=== PATIENT | male | born 1930 | race Caucasian/White ===

== ENCOUNTER 2017-10-23 03:47 | Observation (INO) | payer MEDICARE, BC ==
[2017-10-23] MEDS ORDERED: LORazepam INJ* 2 MG/ML 1 ML VIAL IV PUSH ONE (04:29)
[2017-10-23 05:04] LABS: Urine Appearance Cloudy; Urine Blood 2+ (Negative); Urine Color Yellow; Urine Ketones Negative (Negative); Urine Protein Negative (Negative); Urine Red Blood Cell Trace(0-2/hpf) (Absent); Urine Specific Gravity 1.008 (1.010-1.030); Urine Urobilinogen Negative (Negative); Urine White Blood Cell 3+(>20/hpf) (Absent)
[2017-10-23 05:15] LABS: ABS Basophils 0 10^3/ul (0-0.2); ABS Eosinophils 0.1 10^3/ul (0-0.6); ABS Lymphocytes 0.7 10^3/ul (1.0-4.8); ABS Monocytes 0.7 10^3/ul (0-0.8); ABS Nucleated RBC 0 10^3/ul; Eosinophil % 1.2 % (0-6); Hematocrit 37 % (42-52); Hemoglobin 12.7 g/dl (14.0-18.0); Lymphocyte % 9.8 % (25-47); Mean Corpuscular HGB Conc 34 g/dl (31-36); Mean Corpuscular Hemoglobin 31 pg (27-31); Mean Corpuscular Volume 90 fL (80-94); Mean Platelet Volume 7.7 um3 (7.4-10.4); Nucleated Red Blood Cells % 0; Platelet Count 113 10^3/ul (150-450); Red Blood Count 4.14 10^6/ul (4.0-5.4); Red Cell Distribution Width 15 % (10.5-15); White Blood Count 7.5 10^3/ul (3.5-10.8)
--- OUTSIDE RECORDS SUMMARY | 2017-10-23 05:19 | XMS REPORT ---
:1930 External Reference #:[id number] Author Organization [facility] Address [address] [place] [address] Phone [phone] Care Team Providers Name Role Phone Aditya Urias MD Care Team Information Engineering Technical Specialist Unavailable Aditya Urias MD Primary Care Physician Unavailable Payers Type Date Identification Numbers Payment Provider Subscriber Medicare Primary Effective: Policy Number: Medicare Robert Mayfield 1995 [id number] PayID: [id number] [address] [place] [address] Medigap Part B Effective: 2017 Policy Number: [id number] [place] Plan Aditya Mayfield PayID: [id number] [address] [place] [address] Problems Description No Information Family History Date Family Member(s) Problem(s) Comments Father due to Hypertension () : (age 99 Years) Mother due to Hypertension : (age 74 Years) First Brother due to Parkinson's Disease First Sister 70 First Sister No Current Problems Social History Type Date Description Comments Smoking Nonsmoker Allergies, Adverse Reactions, Alerts Date Description Reaction Status Severity Comments 10/11/2017 NKDA active Medications Medication Date Status Form Strength Qnty SIG Indications Ordering Provider Aspir-[address] 81mg 1 by Unknown 000 mouth every day Fish Oil 0 Active Capsules Unknown 000 Metoprolol 0 Active Tablets ER 25mg 1 by Unknown Succinate ER 000 24HR mouth every day Glipizide ER 0 Active Tablets ER 2.5mg 1 tab Unknown 000 24HR by mouth a day Levothyroxine 0 Active Tablets 25mcg 1 by Unknown Sodium 000 mouth every day Lisinopril-[place] Active Tablets 20-12.5mg 1 by Unknown chlorothiazide 000 mouth every day Vital Signs Date Vital Result Comment 10/11/2017 BP Systolic 162 mmHg BP Diastolic 80 mmHg Heart Rate 88 /min Body Temperature 98.1 F Weight 140.00 lb Results Description No Information Procedures Description No Information Plan of Care Future Appointment(s):01/10/2018 8:00 am - Aditya Urias MD at [facility] [id number]/16/2017 10:00 am - Aditya Urias MD at [facility] [id number]/11/2017 - Aditya Urias [id number] Essential (primary) hypertensionComments:let's change the Metoprolol dose to 50mg daily. you can just take 2 of the 25's you have already. Next Saturday, set up a nurse visit here for a BP check.Follow up:3 moR53.1 WeaknessAllComments:~B_~U_Medication Management~b_~u_ Patient Understands medications he's taking? Yes No Are there Barriers to Adherence? Yes No Has the patient been asked about herbal supplements and therapies, and OTC meds? Yes No
[2017-10-23 05:23] LABS: INR 0.93 (0.77-1.02)
[2017-10-23 05:32] LABS: EGFR Non-African American 64.4 (>60)
[2017-10-23] MEDS ORDERED: Iodixanol* (CONTRAST) 320 MG/ML 100 ML SDV IV ONE (05:35)
--- NOTE | 2017-10-23 08:14 | RAD ---
INDICATION: Back pain. COMPARISON: There are no prior studies available for comparison. TECHNIQUE: Contiguous axial sections were obtained beginning above the C6 vertebra and scanning through the T12 vertebra. Images were reconstructed in the sagittal and coronal planes. FINDINGS: There is a mild dorsal scoliosis convex toward the left in the upper dorsal region and toward the right in the mid dorsal region. The vertebra are otherwise in normal alignment. No fracture is seen. There is mild diffuse degenerative disc disease. There is no evidence for spinal canal narrowing. The visualized portion of the thoracic aorta is normal in caliber. There is moderate to severe calcific plaque present. IMPRESSION: NO EVIDENCE FOR FRACTURE.
--- NOTE | 2017-10-23 08:37 | RAD ---
INDICATION: Lower back pain. History of bilateral inguinal hernia repair. History of prostate carcinoma. COMPARISON: September 24, [address] scan [address] CT. TECHNIQUE: Multidetector CT images were obtained from the lung bases to the ischial tuberosities with 80 mL Visipaque 320 IV and oral contrast. Multiplanar reformation including bone algorithm images of the lumbar sacral spine.. REPORT: Images of the inferior thorax remarkable for cardiomegaly and associated compressive atelectasis at the LEFT lung base. Median sternotomy wires. Unremarkable liver and gallbladder. No suspicious lesion of the pancreas evident. 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 Top normal size spleen. Negative for CT abnormality of the upper GI. Solitary short segment RIGHT para midline mid small bowel loop dilated up to 3.2 cm with feculent appearing contents without mural thickening or perienteric inflammatory change of uncertain significance. No additional abnormality of the small bowel. Normal appendix. Moderate diverticulosis primarily involving the sigmoid colon without acute inflammatory change. Negative for ascites, free air, or significant hernias. Normal adrenal glands. Symmetric nephrograms and pyelograms. Mild RIGHT hydroureteronephrosis new compared with the prior exam. The RIGHT ureter is dilated down to the level of the ureterovesicular junction. Few renal cysts including a 4.2 cm cyst at the lower pole of the LEFT kidney The LEFT ureter is unremarkable. Catheterized decompressed urinary bladder. Symmetric seminal vesicles. Negative for prostatomegaly. Negative for lymphadenopathy. Atherosclerotic plaque of normal diameter abdominal aorta and iliac arteries. Partially decompressed IVC consistent with lower volume state. Negative for fracture or suspicious focal osseous lesions based on comparison with the prior CT and bone scan exams. Small bone island at the RIGHT ischium. Advanced degenerative spondylosis most marked at L1-L2, L2-L3, and L4-L5. Schmorl node endplate herniation at the superior endplate of L2. Reactive endplate sclerosis flanking the L1-L2 disc space corresponding with increased activity on prior bone scan without concern. No significant central canal stenosis evident at any level. At L4-L5 degenerative spondylosis and facet joint osteoarthritis results in moderate bilateral foraminal stenosis without change. IMPRESSION: 1. Solitary short segment RIGHT para midline mid small bowel loop dilated up to 3.2 cm with feculent appearing contents without mural thickening or perienteric inflammatory change of uncertain significance. Negative for ascites or free air. 2. New mild RIGHT hydroureteronephrosis. No obstructing stone evident. Catheterized urinary bladder is decompressed. 3. Negative for lumbar sacral spine fracture or presence of a suspicious focal osseous lesion.
[2017-10-23] MEDS ORDERED: oxyCODONE/Acetamin 5/325 MG* TAB PO ONE (09:17)
[2017-10-23] MEDS: Sulfamethox/Trimethoprim DS 800/160* TAB PO SCH ×2 (09:52→21:01)
[2017-10-23] MEDS ORDERED: Acetaminophen TAB* 325 MG PO PRN (11:11)
[2017-10-23] MEDS ORDERED: Dextrose 50% Syringe 50 ML* 25 GM/50 ML SYRINGE IV PUSH PRN (11:48)
[2017-10-23] MEDS: Metoprolol Succinate XL TAB* 25 MG PO SCH (13:41)
[2017-10-23] MEDS: Heparin VIAL(*) 5000 UNITS/ML VIAL (FIVE THOUSAND) SUBCUT SCH ×2 (13:42→21:02)
[2017-10-23] MEDS: Insulin LISPRO* 1 UNITS UNIT SUBCUT SCH (17:58)
--- NOTE | 2017-10-23 18:33 | ED ---
Elva Bernardo Julia, scribed for Shani Taylor MD on 10/23/17 at 0735 . Progress - Progress Note Progress Note: Pt is signed out from Dr. Franco at shift change awaiting urology consult. Course/Dx - Course Course Of Treatment: Pt is signed out from Dr. Franco awating urology consult. Dr. Espinal recommends patient is discharged with a prescription for Backtrim and he will see in the office. During discharge pt was unable to ambulate and had pain. Daughter expressed concerns that she is not able to care for the pt at home. Decision was made to admit for difficulty ambulating and senior living care plan after discharge. - Diagnoses Provider Diagnoses: Back pain, Urinary tract infection - Provider Notifications Discussed Care Of Patient With: Harry Espinal - urology Time Discussed With Above Provider: 08:35 Instructed by Provider To: Other - Recommneds pt be discharged with Backtrim and he will see the patient in his office. Discharge - Sign-Out/Discharge Documenting (check all that apply): Discharge/Admit/Transfer - admit, Receiving Sign-Out Receiving patient FROM: Casey Franco - Discharge Plan Condition: Stable Disposition: ADMITTED TO [facility] - Billing Disposition and Condition Condition: STABLE [place] [place] Consult: At 09:30, Dr. Dougherty, hospitalist, agrees to admit patient. The documentation as recorded by the Elva ricardo Julia accurately reflects the service I personally performed and the decisions made by , Shani Taylor MD.
--- NOTE | 2017-10-23 21:04 | HP ---
CC: Aditya Urias MD* HISTORY AND PHYSICAL: DATE OF ADMISSION: 10/23/17 PRIMARY CARE PROVIDER: Aditya Urias MD. ATTENDING PHYSICIAN: Bernabe Dougherty MD * (dictated by Nila Mai NP). CHIEF COMPLAINT: Back pain. HISTORY OF PRESENT ILLNESS: Mr. Mayfield is an 87-year-old male with past medical history significant for coronary artery disease, hypertension, diabetes mellitus , dementia, prostate cancer, hypothyroidism and hyperlipidemia, who for 2 days has been complaining of lower back pain with no history of trauma. Per the patient's daughter, he tried a heating pack at home that did not help. Last evening he took ibuprofen and his pain was improved, but during the night his pain increased and so they called EMS. It was also reported that the patient has been having difficulty getting on his feet and uses a cane at baseline for ambulation. The patient denies any recent fevers, chills, chest pain, shortness of breath, nausea, vomiting, diarrhea. He has baseline bilateral lower extremity edema. While in the emergency room, the patient received lorazepam, Percocet and Bactrim. He had an abdomen and pelvis CT showing a mild right hydronephrosis. He had thoracic and lumbar CT's showing no acute fractures. Urology was consulted due to the patient's hydronephrosis. They recommended discharging the patient home with Bactrim and follow up with them in the office. The patient was not complaining of pain while on the stretcher, but when he went to get up to get into a wheelchair for discharge, he was unable to stand and walk. At that point, his daughter requested admission for placement. She was unable to care for him at home, so the hospitalists were asked to evaluate the patient for admission. PAST MEDICAL HISTORY: 1. Coronary artery disease. 2. Hypertension. 3. Diabetes mellitus. 4. Dementia. 5. Prostate cancer. 6. Hypothyroidism. 7. Hyperlipidemia. PAST SURGICAL HISTORY: 1. Status post coronary artery bypass graft x3 vessels in 2003. 2. Status post bilateral inguinal hernia repairs. 3. Status post bilateral cataract extractions. HOME MEDICATIONS: Include: 1. Glipizide XL 2.5 mg oral every morning. 2. Lisinopril/hydrochlorothiazide 20/12.5 mg 1 tablet oral every morning. 3. Levothyroxine 25 mcg oral daily. 4. Aspirin 81 mg oral daily. 5. Metoprolol succinate ER 25 mg oral daily. 6. Zinc 1 tablet oral daily. 7. Cranberry 2 tablets oral daily. 8. Vitamin B12 250 mcg oral daily. 9. Vitamin D 1000 units oral daily. ALLERGIES: No known drug allergies. FAMILY HISTORY: The patient's father passed at age 76 from what sounds like a blood clot. The patient's mother passed at age 94, from heart disease. He denies any family history of diabetes or cancer. SOCIAL HISTORY: The patient denies tobacco, alcohol or recreational drug use. He is a retired boat engine mechanic. His daughter, Fatemeh Mayfield, will be his surrogate decision maker in the event he is unable to make decisions for himself. REVIEW OF SYSTEMS: I performed an 11-point review of systems. All the pertinent positives and negatives are mentioned in the history of present illness. The remaining review of systems are negative. PHYSICAL EXAMINATION GENERAL APPEARANCE: The patient is alert, pleasant, and appears to be in no acute distress. VITAL SIGNS: Temperature 97.7, heart rate 91, respiratory rate 16, O2 sat 97% on room air, blood pressure 117/67. HEENT: Normocephalic, atraumatic. Pupils are equal and reactive to light. Extraocular movements are intact. RESPIRATORY: There is no accessory muscle use. The lungs are clear to auscultation bilaterally. CARDIOVASCULAR: Regular rate and rhythm. S1, S2 present. There are no murmurs , rubs or gallops heard. EXTREMITIES: There is 1+ bilateral lower extremity edema. DP and PT pulses are 1+ and symmetric. MUSCULOSKELETAL: There is no clubbing or cyanosis noted. The patient exhibits good strength in all extremities. The patient has no tenderness to palpation down his spine or lower back. NEUROLOGICAL: The patient is alert and oriented to person, year and situation. PSYCHOLOGICAL: The patient is calm and cooperative. SKIN: There are no rashes or abnormalities seen. DIAGNOSTIC STUDIES/LAB DATA: Sodium 138, potassium 4.3, chloride 103, CO2 of 31 , BUN 30, creatinine 1.08. White blood cell count 7.5, hemoglobin 12.7, hematocrit 37, platelet count 113,000. Urinalysis shows a specific gravity of 1.008, blood 2+, leukocyte esterase 3+, WBC 3+, glucose 1+, and yeast present. Lumbar spine CT from today. Radiologist impression; negative for lumbosacral spine fracture or presence of suspicious focal osseous lesion. Thoracic spine CT from today. Radiologist impression; no evidence for fracture. Abdomen and pelvis CT from today. Radiologist impression; Solidarity short segment right paramidline mid small bowel loop dilated up to 3.3 cm with feculent apparent contents without mural thickening or perienteric inflammatory changes of uncertain significance. Negative for ascites or free air. New mild right hydroureteronephrosis. No obstructing stone evident. Catheterized urinary bladder is decompressed. IMPRESSION: Mr. Mayfield is an 87-year-old male with past medical history significant for dementia, coronary artery disease, hypertension, diabetes mellitus, prostate cancer, hypothyroidism and hyperlipidemia who presented to the emergency room with complaints of back pain. He was found to have hydronephrosis and was unable to ambulate, so he will be admitted for back pain. ASSESSMENT/PLAN: 1. Back pain. The pain has unclear etiology at this time. I do not suspect that his hydronephrosis is causing the pain. There were no significant findings on his imaging. He has no tenderness with palpation of his back. Currently he is pain free. I question if this is a chronic issue for the [facility]. For now we are going to continue him on acetaminophen as needed for pain. If he requires more pain medications, we will adjust his medication accordingly. He will be seen by physical therapy and occupational therapy. 2. Right hydronephrosis. This is in the setting of a urinary catheter. The hydronephrosis could be secondary to the Blair catheter in the setting of a decompressed urinary bladder. Per Urology, the patient will be placed on Bactrim and he will need to follow up with Urology as an outpatient. We continue his urinary catheter. He should follow-up with urology as an outpatient. 3. Anemia. The patient's hemoglobin and hematocrit are down from his baseline. He is 12.7 and 37 today, down from 14.4 and 42 approximately 4 months ago. The patient denies any signs of bleeding, although he does have some microscopic blood in his urine. We will check a stool guaiac and continue to monitor his H and H. 4. Hypertension. The patient will be continued on his home metoprolol succinate and lisinopril/hydrochlorothiazide. 5. History of coronary artery disease. The patient will be continued on his home metoprolol succinate and aspirin. He is not currently on a statin. 6. Dementia. The patient will be given supportive care. We are going to avoid narcotics as I do not want to exacerbate his dementia or cause delirium. 7. Prostate cancer. Chronic indwelling catheter. Continue to follow with Urology outpatient. 8. Hypothyroidism. The patient's TSH is 5.38. He will be continued on his home levothyroxine. 9. Diabetes mellitus. The patient is on glipizide. I am going to hold his glipizide while he is here and place him on a lispro sliding scale. We will check a HgA1C. 10. Fluids, electrolytes and nutrition. The patient will be on a regular diet. 11. Code status. Do Not Resuscitate. I have completed a MOLST form with his daughter over the phone. 12. DVT prophylaxis. The patient is at high risk. He will have subcu heparin. 13. Disposition. Inpatient. TIME SPENT: Time for this admission was approximately 60 minutes, greater than half of that was spent with the patient discussing medications, past medical history, performing a physical examination in addition to discussing the patient 's plan of care and medications with his daughter over the phone and completing a MOLST form. The case has been reviewed with the attending, Dr. Dougherty, who agrees with the plan of care. Reviewed by VICK BALTAZAR 10/26/17 1154 [id number]/NEO #: [id number] SERVANDO
[2017-10-24] MEDS: Heparin VIAL(*) 5000 UNITS/ML VIAL (FIVE THOUSAND) SUBCUT SCH ×2 (05:17→14:13)
[2017-10-24] MEDS ORDERED: Levothyroxine TAB* 25 MCG TAB PO SCH (06:00)
[2017-10-24 06:48] LABS: ABS Basophils 0.1 10^3/ul (0-0.2); ABS Eosinophils 0.1 10^3/ul (0-0.6); ABS Monocytes 0.5 10^3/ul (0-0.8); ABS Neutrophils 4.3 10^3/ul (1.5-7.7); ABS Nucleated RBC 0 10^3/ul; Eosinophil % 1.4 % (0-6); Hematocrit 34 % (42-52); Hemoglobin 11.9 g/dl (14.0-18.0); Lymphocyte % 16.7 % (25-47); Mean Corpuscular HGB Conc 35 g/dl (31-36); Mean Corpuscular Hemoglobin 32 pg (27-31); Mean Corpuscular Volume 89 fL (80-94); Mean Platelet Volume 7.7 um3 (7.4-10.4); Nucleated Red Blood Cells % 0; Platelet Count 112 10^3/ul (150-450); Red Blood Count 3.79 10^6/ul (4.0-5.4); Red Cell Distribution Width 14 % (10.5-15); White Blood Count 5.9 10^3/ul (3.5-10.8)
[2017-10-24 07:06] LABS: EGFR Non-African American 58.7 (>60)
[2017-10-24] MEDS ORDERED: Aspirin EC TAB* 81 MG TAB.EC PO SCH (09:00)
[2017-10-24] MEDS ORDERED: Lisinopril TAB* 10 MG PO SCH (09:00)
[2017-10-24] MEDS ORDERED: glipiZIDE TAB.XL* 2.5 MG PO SCH (09:00)
[2017-10-24] MEDS ORDERED: Hydrochlorothiazide TAB* 25 MG PO SCH (09:00)
[2017-10-24 09:52] VITALS: BP 124/45
[2017-10-24] MEDS: Metoprolol Succinate XL TAB* 25 MG PO SCH (09:59)
[2017-10-24] MEDS: Sulfamethox/Trimethoprim DS 800/160* TAB PO SCH (09:59)
[2017-10-24] MEDS: Insulin LISPRO* 1 UNITS UNIT SUBCUT SCH ×3 (10:00→17:41)
--- NOTE | 2017-10-24 13:44 | PN ---
Hospitalist Progress Note Date of Service: 10/24/17 Per RN, patient glucose read as "high", venous glucose is 457. Will received coverage but patient is only on glipizide at home and should be on dual therapy , if not insulin, as A1C is 9.3. Will discuss with family when they arrive to ensure patient has what he needs for DC and to see his PCP this week. Discussed with FERNANDO Kam.
[2017-10-24] MEDS ORDERED: Dextrose 50% Syringe 50 ML* 25 GM/50 ML SYRINGE IV PUSH PRN (14:06)
[2017-10-24] MEDS ORDERED: Insulin LISPRO* 1 UNITS UNIT SUBCUT ONE ×2 (14:06→14:11)
--- NOTE | 2017-10-25 03:28 | DS ---
CC: Dr. Infante; Dr. Astorga * DISCHARGE SUMMARY: DATE OF ADMISSION: 10/23/17 DATE OF DISCHARGE: 10/24/17 ATTENDING FOR THIS ADMISSION: Bernabe Dougherty MD.* (DICTATED BY LIN FREEMAN NP) PRIMARY CARE DOCTOR: Dr. Infante. MY ATTENDING FOR TODAY: Dr. Astorga. HOSPITAL COURSE: This is a very pleasant 87-year-old male patient who was brought in with EMS services to the emergency department for back pain and inability to ambulate. The patient stated that he had some pretty severe back pain. It did improve at one point with analgesic, ibuprofen. However, during the night, his pain increased pretty extensively. The patient's family brought him into the emergency department for evaluation fearing that he had some sort of fracture. The patient had imaging in the emergency department which showed that he had a hydronephrosis on the right. The patient does have a permanent indwelling urinary catheter, so his bladder is decompressed, but it appears that the hydro may be new. Urology was consulted, they recommend he be placed on Bactrim for a week, go home with the Blair catheter and then follow up with Urology as an outpatient. There were no acute fractures on his other CTs of the thoracic and lumbar spine, so essentially his workup was negative. The patient had physical therapy evaluation today. He was initially supposed to be discharged from the emergency department, however, he was unable to ambulate secondary to the pain. The patient received Tylenol, and physical therapy evaluation today revealed that the patient can ambulate with assistance from his walker and then also may need some 1-person assist sitting to standing, but otherwise he was able to ambulate without issue. He had a steady gait with his assistive device. I discussed at length with the patient's son who is at the bedside regarding the plan of care. Family is okay with taking the patient home and will follow up with the urologist on the , Dr. Espinal, and follow up with his primary care doctor, Dr. Infante, in the next 1 to 2 weeks. DISCHARGE DIAGNOSES: 1. Back pain. 2. Right hydronephrosis. 3. History of hypertension. 4. History of coronary artery disease. 5. Dementia. 6. History of prostate cancer with indwelling catheter. 7. Hypothyroidism. 8. Diabetes mellitus. DISCHARGE MEDICATIONS: Include: 1. Glipizide XL 2.5 mg in the morning. 2. Lisinopril and hydrochlorothiazide 20/12.5 mg 1 tablet daily. 3. Levothyroxine 25 mcg daily. 4. Aspirin 81 mg daily. 5. Metoprolol succinate 25 mg daily. 6. Zinc 1 tablet daily. 7. Cranberry tablets 2 daily. 8. Vitamin B12 and vitamin D and Bactrim which will be continued 2 times a day for 7 days. PHYSICAL EXAMINATION: Vital signs on the day of discharge: Blood pressure 124/ 45, heart rate 89, respiratory rate 14, O2 saturation 100% on room air, with a temperature of 97.8. HEENT: The patient is atraumatic, normocephalic. PERRLA with nonicteric sclerae. Neck is supple, nontender. No JVD noted. No carotid bruits auscultated. Cardiovascular: S1, S2 present. Rate is sometimes irregularly irregular. Rhythm is regular. No murmurs, gallops or rubs noted. Lungs are clear bilaterally to auscultation with no wheezing, rhonchi or rales. Abdomen: Soft, nontender, nondistended. Positive bowel sounds in all 4 quadrants. : He has a permanent indwelling Blair catheter draining clear yellow urine. Musculoskeletal: There is no clubbing, no cyanosis, no edema. He has no pain over the paraspinal processes. He is ambulatory with a walker. He has gross motor and sensation intact with 1-person assist. Neurologic: Currently alert and oriented. Does have periods of confusion secondary to dementia, however, he is conversant and alert and oriented x3 at this time. No further neurologic deficits noted. Psychiatric: He is cooperative and appropriate. LABORATORY DATA: WBC 5.9, RBC 3.79, hemoglobin 11.9, hematocrit 34, platelets 112,000. Sodium 137, potassium 4.1, chloride 104, CO2 of 27, BUN 23, creatinine 1.17, GFR is 58.7, blood glucose is 237. A1c is 9.3. Lactic acid 2.0, calcium is 8.8. Urinalysis shows 2+ blood, 3+ leukocyte esterase, 3+ WBC's. Negative for bacteria. Negative for nitrites and 1+ urine glucose. DISPOSITION AND PLAN: The patient will be discharged home in the care of his son and daughter. The patient was instructed on the use of his walker by physical therapy which will be continued at discharge. Again, follow up with Dr. Espinal. I think he has an appointment already for 10/02/17, but he should call the office to confirm this. He can also follow up with Dr. Infante, his primary care doctor, as needed. LIN FREEMAN, SENIOR POLICY ASSOCIATE [id number]/[facility] #: [id number] [facility]PITALDiana
--- NOTE | 2017-11-09 05:13 | ED ---
Juan Luis Bernardo Angela, scribed for Casey Franco MD on 10/23/17 at 0439 . Back Pain - HPI Summary HPI Summary: This pt is a 87 y/o male presenting to [facility] via EMS c/o low back pain for the past 2 days. Daughter reports that for the last two nights the pt has been complaining of low back pain. Denies injury or trauma to the back. Pt was given ibuprofen yesterday and was fine all day until 23:30 last night. Daughter notes pt's pain was the worst last night. EMS reports the pt also c/o abd pain. Daughter tried heating pad on pt's back with no relief. Per family members, pt at baseline has a hard time getting on his feet. Pt at baseline uses a cane to ambulate. PMHx includes dementia, diabetes, HTN, prostate CA, coronary artery bypass graft x3. Denies hx of back problems. - History of Current Complaint Chief Complaint: EDBackInjuryPain Stated Complaint: BACK PAIN Time Seen by Provider: 10/23/17 04:05 Hx Obtained From: Patient, Family/Barrel Builder - Daughter Onset/Duration: Lasting Days, Still Present Onset/Duration: Started Days Ago, Atraumatic, Still Present Timing: Lasting Days Back Pain Location: Is Discrete @ - low back Severity Currently: None Pain Intensity: 0 Pain Scale Used: 0-10 Numeric Aggravating Symptom(s): Movement Alleviating Symptom(s): Rest Associated Signs And Symptoms: Positive: Abdominal Pain. Negative: Weakness, Numbness, Tingling, Bladder Incontinence, Bowel Incontinence - Allergies/Home Medications Allergies/Adverse Reactions: Allergies Allergy/AdvReac Type Severity Reaction Status Date / Time No Known Allergies Allergy Verified 03/09/15 06:58 PMH/Surg Hx/FS Hx/Imm Hx Endocrine/Hematology History: Reports: Hx Diabetes, Hx Thyroid Disease - HYPOTHYROID Denies: Hx Systemic Lupus Erythematosus Cardiovascular History: Reports: Hx Angina, Hx Coronary Artery Disease - TRIPLE BYPASS- 10 YEARS AGO, Hx Hypercholesterolemia, Hx Hypertension, Other Cardiovascular Problems/Disorders - BYPASS FOR BLOCKAGE Respiratory History: Denies: Hx Asthma, Hx Chronic Obstructive Pulmonary Disease (COPD) GI History: Reports: Other GI Disorders - lex ingunal hernia repair History: Denies: Hx Dialysis, Hx Renal Disease Musculoskeletal History: Denies: Hx Rheumatoid Arthritis Sensory History: Reports: Hx Cataracts - BILATERAL, Hx Contacts or Glasses - reading glasses, Hx Hearing Aid - BUT DOESN'T WEAR Opthamlomology History: Reports: Hx Cataracts - BILATERAL, Hx Contacts or Glasses - reading glasses Neurological History: Reports: Hx Dementia - Cancer History Cancer Type, Location and Year: PROSTATE Hx Chemotherapy: No - Surgical History Surgery Procedure, Year, and Place: HEART BYPASS-2004 [facility]. BILATERAL INGUINAL [facility] 2004 Hx Anesthesia Reactions: No Infectious Disease History: No Infectious Disease History: Denies: Hx Clostridium Difficile, Hx Hepatitis, Hx Human Immunodeficiency Virus (HIV), Hx Shingles, Hx Tuberculosis, Traveled Outside the [place] in Last 30 Days - Family History Known Family History: Positive: Cardiac Disease - Mother, Blood Disorder - Father: blood clot - Social History Alcohol Use: None Substance Use Type: Reports: None Smoking Status (MU): Never Smoked Tobacco Review of Systems Negative: Fever, Chills Cardiovascular: Negative Respiratory: Negative Positive: Abdominal Pain Genitourinary: Negative Musculoskeletal: Other - back pain Skin: Negative All Other Systems Reviewed And Are Negative: Yes Physical Exam - Summary Physical Exam Summary: VITAL SIGNS: Reviewed. GENERAL: Patient is lying on his left side and does not seem to be in pain. Pt was worried about turning due to pain, however he was able to do it. HEAD AND FACE: No signs of trauma. No ecchymosis, hematomas or skull depressions. No sinus tenderness. EYES: PERRLA, EOMI x 2, No injected conjunctiva, no nystagmus. EARS: Hearing grossly intact. Ear canals and tympanic membranes are within normal limits. MOUTH: Oropharynx within normal limits. NECK: Supple, trachea is midline, no adenopathy, no JVD, no carotid bruit, no c- spine tenderness, neck with full ROM. CHEST: Symmetric, no tenderness at palpation LUNGS: Clear to auscultation bilaterally. No wheezing or crackles. CVS: Regular rate and rhythm, S1 and S2 present, no murmurs or gallops appreciated. ABDOMEN: Soft, non-tender. No signs of distention. Pt has involuntary guarding. No rebound and no masses palpated. Bowel sounds are normal. EXTREMITIES: FROM in all major joints, no cyanosis or clubbing. Bilateral feet edema with mild redness bilaterally. No pain in feet. Feet are nontender. NEURO: Alert and oriented x 3. No acute neurological deficits. Speech is normal and follows commands. SKIN: Dry and warm Triage Information Reviewed: Yes Vital Signs On Initial Exam: Initial Vitals Temp Pulse Resp BP Pulse Ox 98.6 F 85 18 175/81 98 10/23/17 04:08 10/23/17 04:08 10/23/17 04:08 10/23/17 04:08 10/23/17 04:08 Vital Signs Reviewed: Yes Diagnostics - Vital Signs Vital Signs Temp Pulse Resp BP Pulse Ox 10/23/17 04:08 98.6 F 85 18 175/81 98 - Laboratory Result Diagrams: 10/23/17 05:05 10/23/17 05:05 Lab Statement: Any lab studies that have been ordered have been reviewed, and results considered in the medical decision making process. - CT Abdomen/pelvis CT CT Interpretation: Positive (See Comments) - IMPRESSION: Right-sided hydronephrosis possibly related to obstruction of the distal ureter by the Blair catheter in collapsed bladder. Dr. Franco has reviewed this radiology report. CT Interpretation Completed By: Radiologist Thoracic spine CT CT Interpretation: No Acute Changes - IMPRESSION: Negative examination. Dr. Franco has reviewed this radiology report. CT Interpretation Completed By: Radiologist Lumbar spine CT CT Interpretation: No Acute Changes - IMPRESSION: Degenerative changes without lumbar spine fracture. Dr. Franco has reviewed this radiology report. CT Interpretation Completed By: Radiologist Re-Evaluation - Re-Evaluation First Eval Re-Evaluation Time: 06:42 Change: Improved Comment: Pt is feeling better after Ativan. Back Pain Course/Dx - Course Assessment/Plan: Pt is a 87 y/o male who presents with low back pain for the past 2 days. Daughter reports that for the last two nights the pt has been complaining of low back pain. Denies injury or trauma to the back. Pt was given ibuprofen yesterday and was fine all day until 23:30 last night. Daughter notes pt's pain was the worst last night. EMS reports the pt also c/o abd pain. Daughter tried heating pad on pt's back with no relief. Per family members, pt at baseline has a hard time getting on his feet. Pt at baseline uses a cane to ambulate. In the ED course the pt was given Ativan. CT abdomen/pelvis shows Right-sided hydronephrosis possibly related to obstruction of the distal ureter by the Blair catheter in collapsed bladder. Lumbar and thoracic spine CTs are both negative. Pt is awaiting urology consult, therefore he will be signed out to Dr. Taylor. Pt will be signed out to Dr. Taylor, pending disposition, awaiting urology consult. - Diagnoses Provider Diagnoses: Hydronephrosis, right, Anxiety Discharge - Sign-Out/Discharge Documenting (check all that apply): Sign-Out Patient Signing out patient TO: Shani Taylor - Discharge Plan Condition: Stable Discharge Disposition Comment: signed out to Dr. Taylor, pending dispo, awaiting urology consult. Referrals: Noemi Infante MD [Primary Care Provider] - The documentation as recorded by the Juan Luis ricardo Angela accurately reflects the service I personally performed and the decisions made by me, Casey Franco MD.
== END 2017-10-24 18:50 | disposition home or self-care (01) ==
LOC: ED 03:47 → MED 09:28 → OBSVTOIN 10:50 → INTOOBSV 10:50
PROVIDERS: ADMIT Internal Medicine; ATTEND Internal Medicine
DX: M54.9 Dorsalgia, unspecified (principal); N13.30 Unspecified hydronephrosis; I10 Essential (primary) hypertension; E11.9 Type 2 diabetes mellitus without complications; E03.9 Hypothyroidism, unspecified; I25.10 Atherosclerotic heart disease of native coronary artery without angina pectoris; F03.90 Unspecified dementia, unspecified severity, without behavioral disturbance, psychotic disturbance, mood disturbance, and anxiety; Z85.46 Personal history of malignant neoplasm of prostate; Z79.82 Long term (current) use of aspirin; Z96.0 Presence of urogenital implants
CPT/HCPCS: 36415; 72128; 72131; 74177; 80048; 80053; 80061; 81003; 81015; 82150; 82947; 83036; 83605; 83690; 83735; 84153; 84443; 85025; 85610; 85730; 86140; 87077; 87086; 87186; 96374; 99284; A9270-GY; G0103; G0378; G8978-GP-CI; G8979-GP-CI; G8980-GP-CI; G8987-GO-CK; G8988-GO-CK; G8989-GO-CK; J1644; J2060; Q9967

== ENCOUNTER 2018-02-22 15:53 | Emergency (ER) | payer MEDICARE, BC ==
--- NOTE | 2018-02-22 16:52 | ED ---
GI/ HPI - HPI Summary HPI Summary: This patient is a 87 year old M presenting to [facility] with a chief complaint of pain in his bladder since 08:00 today. Patient reports increased urinary output. - History of Current Complaint Chief Complaint: EDUrogenitalProblems Time Seen by Provider: 02/22/18 16:28 Stated Complaint: CATH ISSUE/BLOCKAGE Hx Obtained From: Patient Onset/Duration: Started Hours Ago - 08:00 today, Still Present Timing: Constant Pain Intensity: 0 Associated Signs and Symptoms: Positive: Other: - Increased urinary output - Additional Pertinent History Primary Care Physician: JAJA - Allergy/Home Medications Allergies/Adverse Reactions: Allergies Allergy/AdvReac Type Severity Reaction Status Date / Time No Known Allergies Allergy Verified 02/22/18 15:56 PMH/Surg Hx/FS Hx/Imm Hx Endocrine/Hematology History: Reports: Hx Diabetes, Hx Thyroid Disease - HYPOTHYROID Denies: Hx Systemic Lupus Erythematosus Cardiovascular History: Reports: Hx Angina, Hx Coronary Artery Disease - TRIPLE BYPASS- 10 YEARS AGO, Hx Hypercholesterolemia, Hx Hypertension, Other Cardiovascular Problems/Disorders - BYPASS FOR BLOCKAGE Respiratory History: Denies: Hx Asthma, Hx Chronic Obstructive Pulmonary Disease (COPD) GI History: Reports: Other GI Disorders - lex ingunal hernia repair History: Denies: Hx Dialysis, Hx Renal Disease Musculoskeletal History: Denies: Hx Rheumatoid Arthritis Sensory History: Reports: Hx Cataracts - BILATERAL, Hx Contacts or Glasses - reading glasses, Hx Hearing Aid - BUT DOESN'T WEAR Opthamlomology History: Reports: Hx Cataracts - BILATERAL, Hx Contacts or Glasses - reading glasses Neurological History: Reports: Hx Dementia - Cancer History Cancer Type, Location and Year: PROSTATE Hx Chemotherapy: No - Surgical History Surgery Procedure, Year, and Place: HEART BYPASS-2003 [facility]. BILATERAL INGUINAL [facility] 2003 Hx Anesthesia Reactions: No Infectious Disease History: No Infectious Disease History: Denies: Hx Clostridium Difficile, Hx Hepatitis, Hx Human Immunodeficiency Virus (HIV), Hx Shingles, Hx Tuberculosis, Traveled Outside the [place] in Last 30 Days - Family History Known Family History: Positive: Cardiac Disease - Mother, Blood Disorder - Father: blood clot - Social History Occupation: Retired Lives: With Family Alcohol Use: None Substance Use Type: Reports: None Smoking Status (MU): Never Smoked Tobacco Review of Systems Negative: Fever Positive: pain - in bladder, other - Increased urinary output All Other Systems Reviewed And Are Negative: Yes Physical Exam - Summary Physical Exam Summary: General: well-appearing, no pain distress Skin: warm, color reflects adequate perfusion, dry Head: normal Eyes: EOMI, ALYSSA ENT: normal Neck: supple, nontender Respiratory: CTA, breath sounds present Cardiovascular: RRR Abdomen: Tender to palpation in suprapubic area. Bowel: present Musculoskeletal: normal, strength/ROM intact Neurological: sensory/motor intact, A&O x3 Psychological: affect/mood appropriate Triage Information Reviewed: Yes Vital Signs On Initial Exam: Initial Vitals Temp Pulse Resp BP Pulse Ox 96.9 F 124 12 122/80 98 02/22/18 15:56 02/22/18 15:56 02/22/18 15:56 02/22/18 15:56 02/22/18 15:56 Vital Signs Reviewed: Yes Diagnostics - Vital Signs Vital Signs Temp Pulse Resp BP Pulse Ox 02/22/18 15:56 96.9 F 124 12 122/80 98 - Laboratory Lab Statement: Any lab studies that have been ordered have been reviewed, and results considered in the medical decision making process. GIGU Course/Dx - Course Course Of Treatment: GARZA BALLOON DEFLATED, CATHETER ADVANCED, GARZA FLUSHED AND CLEARED. URINE SENT FOR CX; PATIENT WITHOUT INFECTION SX. F/U UROLOGY, RETURN IF WORSE. - Diagnoses Provider Diagnoses: Obstructed Garza catheter Discharge - Sign-Out/Discharge Documenting (check all that apply): Patient Departure - Discharge Plan Condition: Stable Disposition: HOME Patient Education Materials: Garza Catheter Placement and Care (ED) Referrals: Aditya Urias MD [Primary Care Provider] - Nima Jaffe MD [Medical Doctor] - Additional Instructions: FOLLOW UP WITH UROLOGY. GET RECHECKED FOR ANY WORSENING OF YOUR CONDITION OR QUESTIONS OR CONCERNS. - Billing Disposition and Condition Condition: STABLE Disposition: Home - Attestation Statements Document Initiated by Gianniibe: Yes Documenting Scribe: Sin Lynne Provider For Whom Ratna is Documenting (Include Credential): Tu Mendoza MD Scribe Attestation: Sin Bernardo, scribed for Tu Mendoza MD on 02/22/18 at 2137. Scribe Documentation Reviewed: Yes Provider Attestation: The documentation as recorded by the Sin ricardo accurately reflects the service I personally performed and the decisions made by me, Tu Mendoza MD
[2018-02-22 17:46] LABS: Urine Appearance Cloudy; Urine Blood Negative (Negative); Urine Color Amber; Urine Ketones Negative (Negative); Urine Protein 3+(>=500 mg/dL) (Negative); Urine Red Blood Cell 3+(>10/hpf) (Absent); Urine Specific Gravity 1.013 (1.010-1.030); Urine Urobilinogen Negative (Negative); Urine White Blood Cell 3+(>20/hpf) (Absent)
[2018-02-22 18:51] VITALS: BP 0/0
--- NOTE | 2018-02-25 17:49 | ED ---
Progress - Progress Note Progress Note: Patient's final urine culture reveals greater than 100,000 Escherichia coli and greater than 100,000 [place] [employer]. Organisms are mostly pansensitive with a few exceptions. Patient's no reports he has a Garza catheter and was advised to have follow-up with Dr. Jaffe. No medication was prescribed at time of visit. Left message to call. Will also mail letter. inventory clerk aware. Course/Dx - Course Course Of Treatment: GARZA BALLOON DEFLATED, CATHETER ADVANCED, GARZA FLUSHED AND CLEARED. URINE SENT FOR CX; PATIENT WITHOUT INFECTION SX. F/U UROLOGY, RETURN IF WORSE. - Diagnoses Provider Diagnoses: Obstructed Garza catheter Discharge - Sign-Out/Discharge Documenting (check all that apply): Post-Discharge Follow Up - Discharge Plan Condition: Stable Disposition: HOME Patient Education Materials: Garza Catheter Placement and Care (ED) Referrals: Aditya Urias MD [Primary Care Provider] - Nima Jaffe MD [Medical Doctor] - Additional Instructions: FOLLOW UP WITH UROLOGY. GET RECHECKED FOR ANY WORSENING OF YOUR CONDITION OR QUESTIONS OR CONCERNS. - Billing Disposition and Condition Condition: STABLE Disposition: Home
== END 2018-02-22 18:48 | disposition home or self-care (01) ==
LOC: ED 15:53
DX: T83.098A Other mechanical complication of other urinary catheter, initial encounter (principal)
CPT/HCPCS: 81003; 81015; 87077; 87086; 87186; 99282

== ENCOUNTER 2018-02-27 01:28 | Emergency (ER) | payer MEDICARE, BC ==
--- NOTE | 2018-02-27 02:16 | ED ---
Shortness of Breath - HPI Summary HPI Summary: The patient is an 87 y/o M presenting to [facility] accompanied by his daughter and son-in-law with a chief complaint of SOB with a sudden onset at 01:00. He was sleeping when he woke up with heavy breathing, as seen by his son-in-law. His daughter put the pt on O2 and checked O2 sat, which was low. She also checked his HR and BP, both of which were higher than normal. He had some nonproductive coughing throughout the past two weeks, but had not been particularly coughing today. His daughter also notes that he had been sleeping a lot in the past week , but was more active today. He denies CP. He does not have hx of COPD, but did have open heart surgery 40 years ago. He recently had a cardiology appt in December 2017, which showed no change. Additionally has hx of dementia. Nonsmoker. - History of Current Complaint Chief Complaint: EDShortnessOfBreath Time Seen by Provider: 02/27/18 02:00 Hx Obtained From: Patient Onset/Duration: Sudden Onset, Lasting Hours, Still Present Timing: Constant Current Severity: Moderate Dyspnea At: Rest Aggrevating Factors: Nothing Alleviating Factors: Oxygen Associated Signs & Symptoms: Cough (Nonproductive) - Allergy/Home Medications Allergies/Adverse Reactions: Allergies Allergy/AdvReac Type Severity Reaction Status Date / Time No Known Allergies Allergy Verified 02/27/18 01:32 PMH/Surg Hx/FS Hx/Imm Hx Endocrine/Hematology History: Reports: Hx Diabetes, Hx Thyroid Disease - HYPOTHYROID Denies: Hx Systemic Lupus Erythematosus Cardiovascular History: Reports: Hx Angina, Hx Coronary Artery Disease - TRIPLE BYPASS- 10 YEARS AGO, Hx Hypercholesterolemia, Hx Hypertension, Other Cardiovascular Problems/Disorders - BYPASS FOR BLOCKAGE Respiratory History: Denies: Hx Asthma, Hx Chronic Obstructive Pulmonary Disease (COPD) GI History: Reports: Other GI Disorders - lex ingunal hernia repair History: Denies: Hx Dialysis, Hx Renal Disease Musculoskeletal History: Denies: Hx Rheumatoid Arthritis Sensory History: Reports: Hx Cataracts - BILATERAL, Hx Contacts or Glasses - reading glasses, Hx Hearing Aid - BUT DOESN'T WEAR Opthamlomology History: Reports: Hx Cataracts - BILATERAL, Hx Contacts or Glasses - reading glasses Neurological History: Reports: Hx Dementia - Cancer History Cancer Type, Location and Year: PROSTATE Hx Chemotherapy: No - Surgical History Surgery Procedure, Year, and Place: HEART BYPASS-2003 [facility]. BILATERAL INGUINAL [facility] 2003 Hx Anesthesia Reactions: No Infectious Disease History: No Infectious Disease History: Denies: Hx Clostridium Difficile, Hx Hepatitis, Hx Human Immunodeficiency Virus (HIV), Hx Shingles, Hx Tuberculosis, Traveled Outside the [place] in Last 30 Days - Family History Known Family History: Positive: Cardiac Disease - Mother, Blood Disorder - Father: blood clot - Social History Alcohol Use: None Substance Use Type: Reports: None Smoking Status (MU): Never Smoked Tobacco Review of Systems Negative: Chest Pain Positive: Shortness Of Breath, Cough - nonproductive All Other Systems Reviewed And Are Negative: Yes Physical Exam - Summary Physical Exam Summary: Appearance: Well-appearing, Well-nourished, lying in bed comfortably Skin: Warm, dry, no obvious rash Eyes: sclera anicteric, no conjunctival pallor ENT: mucous membranes moist, pharynx appears normal Neck: Supple, nontender Respiratory: Clear to auscultation, no signs of respiratory distress Cardiovascular: Normal S1, S2. No murmurs. Normal distal pulses in tibial and radial bilaterally. Abdomen: Soft, nontender, normal active bowel sounds present Musculoskeletal: Normal, Strength/ROM Intact Neurological: A&Ox3, awake and alert, mentation is normal, speech is fluent and appropriate Psychiatric: affect is normal, does not appear anxious or depressed Triage Information Reviewed: Yes Vital Signs On Initial Exam: Initial Vitals Temp Pulse Resp BP Pulse Ox 97.9 F 122 24 180/88 99 02/27/18 01:30 02/27/18 01:30 02/27/18 01:30 02/27/18 01:30 02/27/18 01:30 Vital Signs Reviewed: Yes Diagnostics - Vital Signs Vital Signs Temp Pulse Resp BP Pulse Ox 02/27/18 01:44 110 96 02/27/18 01:43 104 183/94 97 02/27/18 01:30 97.9 F 122 24 180/88 99 - Laboratory Result Diagrams: 02/27/18 02:32 02/27/18 02:31 Lab Statement: Any lab studies that have been ordered have been reviewed, and results considered in the medical decision making process. - Radiology CXR Xray Interpretation: No Acute Changes - No acute disease. ED physician has reviewed this report. Radiology Interpretation Completed By: Radiologist - EKG 02:17 Cardiac Rate: NL - 95 BPM EKG Rhythm: Sinus Rhythm EKG Interpretation: Multiform ventricular premature complexes. 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 Course/Dx - Course Course Of Treatment: The patient is an 87 y/o M presenting to [facility] accompanied by his daughter and son-in-law with a chief complaint of SOB with a sudden onset at 01:00. He was sleeping when he woke up with heavy breathing, as seen by his son-in-law. His daughter put the pt on O2 and checked O2 sat, which was low. She also checked his HR and BP, both of which were higher than normal. He had some nonproductive coughing throughout the past two weeks, but had not been particularly coughing today. His daughter also notes that he had been sleeping a lot in the past week, but was more active today. He denies CP. He does not have hx of COPD, but did have open heart surgery 40 years ago. He recently had a cardiology appt in December 2017, which showed no change. Additionally has hx of dementia. Nonsmoker. Physical exam is normal. Elevated BP and HR noted. In the ED course, the lab results show elevated BUN/creatine, increased glucose, decreased lymphocytes, and negative first and second troponin. EKG reveals Multiform ventricular premature complexes, left anterior fasicular block, and old anteroseptal infarct. CXR is negative. Patient will be diagnosed with dyspnea. He will be discharged home with instructions and follow up with his PCP. His daughter and son-in-law will pick him up to go home. Return precautions for any new or worsening symptoms were discussed. Patient understands and agrees with this plan. - Diagnoses Provider Diagnoses: Dyspnea Discharge - Sign-Out/Discharge Documenting (check all that apply): Patient Departure - Patient will be discharged home. - Discharge Plan Condition: Stable Disposition: HOME Patient Education Materials: Dyspnea (ED) Referrals: Aditya Urias MD [Primary Care Provider] - - Billing Disposition and Condition Condition: STABLE Disposition: Home - Attestation Statements Document Initiated by Scribe: Yes Documenting Scribe: Irene Helm Provider For Whom Scribe is Documenting (Include Credential): Dr. Ramon Gonzales MD Scribe Attestation: Irene Bernardo scribed for Dr. Ramon Gonzales MD on 02/27/18 at 0629. Scribe Documentation Reviewed: Yes Provider Attestation: The documentation as recorded by the scribe, Irene Helm accurately reflects the service I personally performed and the decisions made by me, Dr. Ramon Gonzales MD
[2018-02-27 02:40] LABS: ABS Basophils 0 10^3/ul (0-0.2); ABS Eosinophils 0.1 10^3/ul (0-0.6); ABS Lymphocytes 0.9 10^3/ul (1.0-4.8); ABS Monocytes 0.5 10^3/ul (0-0.8); ABS Neutrophils 6.2 10^3/ul (1.5-7.7); ABS Nucleated RBC 0 10^3/ul; Eosinophil % 1.7 % (0-6); Hematocrit 36 % (42-52); Lymphocyte % 12.2 % (25-47); Mean Corpuscular HGB Conc 34 g/dl (31-36); Mean Corpuscular Hemoglobin 29 pg (27-31); Mean Corpuscular Volume 87 fL (80-94); Mean Platelet Volume 6.5 um3 (7.4-10.4); Nucleated Red Blood Cells % 0; Platelet Count 193 10^3/ul (150-450); Red Blood Count 4.12 10^6/ul (4.00-5.40); Red Cell Distribution Width 14 % (10.5-15); White Blood Count 7.8 10^3/ul (3.5-10.8)
[2018-02-27 02:56] LABS: EGFR Non-African American 51.1 (>60)
[2018-02-27 06:45] VITALS: BP 131/75
--- NOTE | 2018-02-27 07:51 | RAD ---
INDICATION: Dyspnea. COMPARISON: Comparison is made with a prior chest x-ray study from September 09, 2015. TECHNIQUE: Dual-energy PA and lateral views of the chest were obtained. FINDINGS: The patient appears to be status post coronary artery bypass surgery. Note is made of sternal sutures and mediastinal clips. The heart is within normal limits in size. The lungs are clear. No pleural effusion is present. IMPRESSION: POSTSURGICAL CHANGES, NO EVIDENCE FOR ACUTE FINDING. R0
== END 2018-02-27 06:43 | disposition home or self-care (01) ==
LOC: ED 01:28
DX: R06.00 Dyspnea, unspecified (principal); R05 Cough; R06.02 Shortness of breath; I25.10 Atherosclerotic heart disease of native coronary artery without angina pectoris; Z95.5 Presence of coronary angioplasty implant and graft; I10 Essential (primary) hypertension
CPT/HCPCS: 36415; 71046; 80053; 84484; 85025; 93005; 99284

== ENCOUNTER 2018-07-22 08:41 | Inpatient (IN) | payer MEDICARE, BC ==
[2018-07-22] MEDS ORDERED: NS 0.9% 1000 ML** 1,000 ML IV ONE ×3 (08:55→12:14)
--- NOTE | 2018-07-22 09:10 | ED ---
Complex/Multi-Sys Presentation - HPI Summary HPI Summary: Pt is an 87 y/o male brought in by EMS who presents to the ED c/o weakness. As per EMS, hes been having weakness, confusion, and decreased appetite for the past few days. He has not been eating or drinking water, and pts catheter bag is not full. EMS reports the pt is hypoxic with an O2 sat of 80, and has a blood glucose of over 500. They also note that the pts speech seems slightly garbled. Pt lives with his daughter at home, and does not check his blood sugar regularly. He denies any current pain at this time. PMHx dementia, DM, hypothyroidism. - History Of Current Complaint Hx Obtained From: Patient, EMS Onset/Duration: Gradual Onset, Lasting Days - 2-3, Still Present Timing: Constant Location: Negative Aggravating Factor(s): Nothing Alleviating Factor(s): Nothing Associated Signs And Symptoms: Positive: Confusion, Weakness, Other - Decreased appetite Related History: Other - DM - Allergies/Home Medications Allergies/Adverse Reactions: Allergies Allergy/AdvReac Type Severity Reaction Status Date / Time No Known Allergies Allergy Verified 07/22/18 12:43 Home Medications: Home Medications Metoprolol Succinate XL TAB* [Toprol XL TAB*] 25 mg PO DAILY 07/22/18 [History Confirmed 07/22/18] PMH/Surg Hx/FS Hx/Imm Hx Endocrine/Hematology History: Reports: Hx Diabetes, Hx Thyroid Disease - HYPOTHYROID Denies: Hx Systemic Lupus Erythematosus Cardiovascular History: Reports: Hx Angina, Hx Coronary Artery Disease - TRIPLE BYPASS- 10 YEARS AGO, Hx Hypercholesterolemia, Hx Hypertension, Other Cardiovascular Problems/Disorders - BYPASS FOR BLOCKAGE Respiratory History: Denies: Hx Asthma, Hx Chronic Obstructive Pulmonary Disease (COPD) GI History: Reports: Other GI Disorders - lex ingunal hernia repair History: Denies: Hx Dialysis, Hx Renal Disease Musculoskeletal History: Denies: Hx Rheumatoid Arthritis Sensory History: Reports: Hx Cataracts - BILATERAL, Hx Contacts or Glasses - reading glasses, Hx Hearing Aid - BUT DOESN'T WEAR Opthamlomology History: Reports: Hx Cataracts - BILATERAL, Hx Contacts or Glasses - reading glasses Neurological History: Reports: Hx Dementia - Cancer History Cancer Type, Location and Year: PROSTATE Hx Chemotherapy: No - Surgical History Surgery Procedure, Year, and Place: HEART BYPASS-2003 [facility]. BILATERAL INGUINAL [facility] 2003 Hx Anesthesia Reactions: No Infectious Disease History: No Infectious Disease History: Denies: Hx Clostridium Difficile, Hx Hepatitis, Hx Human Immunodeficiency Virus (HIV), Hx Shingles, Hx Tuberculosis, Traveled Outside the [place] in Last 30 Days - Family History Known Family History: Positive: Cardiac Disease - Mother, Blood Disorder - Father: blood clot - Social History Alcohol Use: None Hx Substance Use: No Substance Use Type: Reports: None Hx Tobacco Use: No Smoking Status (MU): Never Smoked Tobacco Review of Systems Positive: Other - decreased appetite Neurological: Other - confusion Positive: Weakness, Slurred Speech All Other Systems Reviewed And Are Negative: Yes Physical Exam - Summary Physical Exam Summary: GENERAL: Patient is a well-developed and nourished M who is lying comfortable in the stretcher. Patient is not in any acute respiratory distress. HEAD AND FACE: Normocephalic EYES: PERRLA, EOMI x 2. EARS: Hearing grossly intact. MOUTH: Oropharynx within normal limits. NECK: Supple, trachea is midline, no adenopathy, no JVD, no carotid bruit. CHEST: Symmetric, no tenderness at palpation LUNGS: Clear to auscultation bilaterally. No wheezing or crackles. Decreased breath sounds. CVS: Regular rate and rhythm, S1 and S2 present, no murmurs or gallops appreciated. Midline surgical scar from CABG. ABDOMEN: Soft, non-tender. Bowel sounds are normal. No abdominal abnormal pulsations. EXTREMITIES: Full ROM in all major joints, no edema, no cyanosis or clubbing. NEURO: Alert and oriented x 3. No acute neurological deficits. Speech is normal and follows commands. SKIN: Dry and warm GCS: 15 Triage Information Reviewed: Yes Vital Signs On Initial Exam: Initial Vitals Temp Pulse Resp BP Pulse Ox 97.6 F 96 23 110/65 95 07/22/18 08:52 07/22/18 08:52 07/22/18 08:52 07/22/18 08:52 07/22/18 08:52 Vital Signs Reviewed: Yes Diagnostics - Vital Signs Vital Signs Temp Pulse Resp BP Pulse Ox 07/22/18 08:52 97.6 F 96 23 110/65 95 - Laboratory Result Diagrams: 07/23/18 06:08 07/23/18 13:21 Lab Statement: Any lab studies that have been ordered have been reviewed, and results considered in the medical decision making process. - Radiology CXR Radiology Interpretation Completed By: Radiologist Summary of Radiographic Findings: Stigmata of chronic obstructive pulmonary disease and emphysema. No acute cardiopulmonary process evident. ED physician reviewed radiology report. - CT Brain CT CT Interpretation Completed By: Radiologist Summary of CT Findings: NO ACUTE INTRACRANIAL PATHOLOGY. CHRONIC SMALL VESSEL ISCHEMIC CHANGE. ED physician reviewed radiology report. - EKG 9:00 Cardiac Rate: NL - 95 bpm EKG Rhythm: Sinus Rhythm Summary of EKG Findings: Left anterior fascicular block, ST depression in lateral and inferior leads Complex Multi-Symp Course/Dx Course Of Treatment: Pt is an 87 y/o male brought in by EMS who presents to the ED c/o weakness, confusion, and decreased appetite for the past few days. Blood glucose was 800. A CXR was negative. A brain CT was negative. An EKG revealed a rate of 95 bpm, Left anterior fascicular block, and ST depression in lateral and inferior leads. Final dx are acute kidney failure, hyperglycemia, and UTI. Patient will be admitted. Case discussed with hospitalist, Dr. Magana. I discussed results with patient. The patient agrees with this plan. - Diagnoses Provider Diagnoses: Acute kidney failure, UTI (urinary tract infection), Hyperglycemia - Physician Notifications Discussed Care Of Patient With: Boris Magana Time Discussed With Above Provider: 10:57 Instructed by Provider To: Admit As Inpatient - Critical Care Time Critical Care Time: 30-74 min Discharge - Sign-Out/Discharge Documenting (check all that apply): Patient Departure - Admit Patient Received Moderate/Deep Sedation with Procedure: No - Discharge Plan Condition: Stable Disposition: ADMITTED TO [facility] - Billing Disposition and Condition Condition: STABLE Disposition: Admitted to [facility] - Attestation Statements Document Initiated by Scribe: Yes Documenting Scribe: Dilcia Patel Provider For Whom Scribe is Documenting (Include Credential): Shani Taylor MD Scribe Attestation: Dilcia Bernardo scribed for Shani Taylor MD on 07/23/18 at 1807. Scribe Documentation Reviewed: Yes Provider Attestation: The documentation as recorded by the Dilcia ricardo accurately reflects the service I personally performed and the decisions made by , Shani Taylor MD Status of Scribe Document: Viewed
[2018-07-22 09:36] LABS: ABS Basophils 0 10^3/ul (0-0.2); ABS Eosinophils 0 10^3/ul (0-0.6); ABS Lymphocytes 0.5 10^3/ul (1.0-4.8); ABS Monocytes 0.6 10^3/ul (0-0.8); ABS Neutrophils 9.7 10^3/ul (1.5-7.7); ABS Nucleated RBC 0 10^3/ul; Eosinophil % 0.3 %; Hematocrit 44 % (42-52); Lymphocyte % 4.8 %; Mean Corpuscular HGB Conc 32 g/dl (31-36); Mean Corpuscular Hemoglobin 30 pg (27-31); Mean Corpuscular Volume 93 fL (80-94); Mean Platelet Volume 8.9 fL (7.4-10.4); Nucleated Red Blood Cells % 0; Platelet Count 198 10^3/ul (150-450); Red Blood Count 4.69 10^6/ul (4.00-5.40); Red Cell Distribution Width 15 % (10.5-15); White Blood Count 10.9 10^3/ul (3.5-10.8)
[2018-07-22 09:40] LABS: Urine Appearance Cloudy; Urine Bacteria Absent (Absent); Urine Bilirubin Negative (Negative); Urine Blood 1+ (Negative); Urine Color Yellow; Urine Glucose 3+(>=500 mg/dL) (Negative); Urine Ketones Trace (Negative); Urine Nitrite Negative (Negative); Urine Protein Negative (Negative); Urine Red Blood Cell 3+(>10/hpf) (Absent); Urine Specific Gravity 1.022 (1.010-1.030); Urine Urobilinogen Negative (Negative); Urine White Blood Cell 3+(>20/hpf) (Absent)
[2018-07-22 09:43] LABS: INR 0.96 (0.77-1.02)
[2018-07-22 09:46] LABS: Influenza A Molecular NEGATIVE (Negative); Influenza B Molecular NEGATIVE (Negative)
[2018-07-22 09:54] LABS: Albumin 3.6 g/dL (3.2-5.2); BUN/Creatinine Ratio 40.6 (8-20); Calcium 10.1 mg/dL (8.6-10.3); EGFR African American 28.1 (>60); EGFR Non-African American 23.3 (>60); Globulin 3.5 g/dL (2-4); Magnesium 2.9 mg/dL (1.9-2.7); Potassium 4.7 mmol/L (3.5-5.0); Total Bilirubin 0.6 mg/dL (0.2-1.0); Total Protein 7.1 g/dL (6.4-8.9)
[2018-07-22 09:56] LABS: Troponin I 0.03 ng/mL (<0.04)
[2018-07-22 10:06] LABS: Barbiturates Urine Screen None Detected (None Detect); Benzodiazepine Urine Screen None Detected (None Detect); Urine Cannabinoids Screen None Detected (None Detect)
[2018-07-22] MEDS ORDERED: Insulin IVPB 100 units/100 ml 100 UNITS/100 ML UNIT IVPB ONE (10:19)
[2018-07-22] MEDS ORDERED: cefTRIAXone(*) 1 GM in NS 0.9% 50 ML* 50 ML IVPB ONE (10:19)
[2018-07-22 11:35] LABS: TSH (Thyroid Stimulating Horm) 3.01 mcIU/mL (0.34-5.60)
[2018-07-22] MEDS ORDERED: NS 0.9% 1000 ML** 1,000 ML IV SCH ×2 (12:15→13:30)
[2018-07-22 12:42] LABS: BUN/Creatinine Ratio 41.9 (8-20); Calcium 9.9 mg/dL (8.6-10.3); EGFR African American 30.8 (>60); EGFR Non-African American 25.5 (>60); Potassium 4.1 mmol/L (3.5-5.0)
[2018-07-22] MEDS ORDERED: cefTRIAXone(*) 1 GM in NS 0.9% 50 ML* 50 ML IVPB SCH (13:00)
[2018-07-22] MEDS ORDERED: NS 0.45% 1000 ML BAG* 1,000 ML IV SCH ×2 (13:00)
--- NOTE | 2018-07-22 15:22 | HP ---
CC: Dr. Aditya Urias * HISTORY AND PHYSICAL: DATE OF ADMISSION: 07/22/18 PROVIDER: Leilani Henry NP PRIMARY CARE PROVIDER: Dr. Aditya Urias. ATTENDING PHYSICIAN WHILE IN THE HOSPITAL: Dr. Boris Magana * (dictated by Leilani Henry NP). CHIEF COMPLAINT: Altered mental status. HISTORY OF PRESENT ILLNESS: History was obtained from the daughter as the patient does have advanced dementia. He is oriented only to person. Per the daughter, the patient has had decreased appetite since May that is progressively worsening. She states over the past week, he has had even more significant decrease in appetite and not taking any solid foods. She reports that up until Saturday, he was drinking approximately 3 Boosts per day and sips of water and since Saturday, she reports the patient has only had 1 can of Boost and a few sips of water. She reports over the past week, the patient has increased weakness to the point he is unable to walk. Prior to that, a week ago , she reports the patient was able to walk with a walker and was continent of stool. She states since Saturday, the patient has been incontinent of stool and unable to ambulate with his walker due to the weakness. She does report that on Saturday, the patient started having garbled speech, unable to say further words. Daughter reports that generally the patient's speech is clear. She does report that the patient has had an indwelling Blair catheter for approximately 1 year. She denies any fevers. She denies any cough, hemoptysis , or shortness of breath. She denies any vomiting or diarrhea. Denies any black or tarry stools. She does report that the patient has had increased weakness. She does report abrasions to bilateral elbows from a fall. She denies any recent sick contacts. Due to his increased weakness and garbled speech, he was brought to the emergency room by EMS. While in the emergency room, the patient had routine lab work drawn. He was found to have elevated blood sugar of 800 and BUN and creatinine that were elevated above baseline, BUN was 106, creatinine 2.61. The patient was afebrile on arrival to the emergency room. He was given IV fluids. Due to the increased blood sugar and acute kidney injury, we were asked to evaluate him for admission. PAST MEDICAL HISTORY: Significant for: 1. Coronary artery disease. 2. Hypertension. 3. Diabetes type 2. 4. Dementia. 5. History of prostate cancer. 6. Hypothyroid. 7. Hyperlipidemia. PAST SURGICAL HISTORY: 1. History of coronary artery bypass surgery, 3 vessels, in 2003. 2. Hernia repair. 3. History of bilateral cataracts. HOME MEDICATIONS: 1. Glipizide XL 2.5 mg orally daily, last dose was yesterday. 2. Lisinopril/hydrochlorothiazide 20/12.5 one tablet every morning, last dose was yesterday. 3. Levothyroxine 25 mcg orally daily. 4. Metoprolol succinate ER 25 mg orally daily. ALLERGIES: No known drug allergies. FAMILY HISTORY: Obtained from his old records, reports that the father at age 76 from what sounds like a blood clot. Mother at the age of 94 of heart disease. Denies any family history of diabetes or cancer. SOCIAL HISTORY: This was again obtained from his prior medical records. No reports of tobacco, alcohol, or recreational drug use. This was confirmed by his daughter. He is a retired truck and transport mechanic. He lives with his daughter, Fatemeh Mayfield. She is a surrogate decision maker in the event he is unable to make is own decisions. The patient is a DNR/DNI and MOLST form has been completed and placed on the chart. REVIEW OF SYSTEMS: There has been no documented fever. Daughter does report decreased appetite since May, significantly decreased over the past week to minimal amounts of oral intake since Saturday. No reports of cough, shortness of breath, or hemoptysis. No vomiting, diarrhea, or abdominal pain was reported. The daughter denies any black or tarry stools. She denies any gross hematuria in the Blair. She does report bilateral elbows with abrasions from a fall. PHYSICAL EXAMINATION GENERAL APPEARANCE: The patient is alert to verbal. His speech is clear. He is confused. Oriented only to person. Appears dehydrated, weak and frail. VITAL SIGNS: Blood pressure 116/71, heart rate 86, respirations 18, O2 saturation 97%, temperature was 97.6. HEENT: Head is atraumatic, normocephalic. Eyes: EOMs are intact. Sclerae anicteric and not pale. Oral mucosa is dry. Mucous membranes are dry. RESPIRATORY: Lung sounds are clear to auscultation bilaterally. No wheezes, rales, or rhonchi and no accessory muscle use. CARDIAC: S1, S2. Regular rate and rhythm. No murmurs, rubs, or gallops. EXTREMITIES: Pedal pulses are +1 bilaterally. No edema. MUSCULOSKELETAL: There is no clubbing or cyanosis. He is able to move all 4 extremities. NEUROLOGIC: The patient is oriented to person only, confused to year, situation. PSYCHOLOGICAL: The patient is calm and cooperative. SKIN: He does have abrasions to bilateral elbows and cracking noted to his heels. His skin is dry, is tenting over the sternum. DIAGNOSTIC STUDIES/LAB DATA: WBCs are 10.9, RBCs 4.69, hemoglobin 14.0, hematocrit is 44, platelet count 198. INR is 0.96. VBG, pH is 7.39, pCO2 is 55 , pO2 is less than 38, HCO3 of 28.3, VBG O2 saturation was 28.4, VBG base excess was 6.7. Sodium 145, potassium 4.7, chloride 104, carbon dioxide is 30, anion gap is 11, BUN was 106, creatinine 2.61, glucose was 800, lactic acid 1.5 , calcium 10.1, magnesium 2.9. ASTs were 11, ALTs were 19. Troponin 0.03. TSH is currently pending. Urine pH was 8, specific gravity of 1.022, urine protein was negative, ketones were trace, blood was 1+, nitrites negative, bilirubin was negative, urobilinogen was negative, urine leukocyte esterase was 3+, wbc's 3+, rbc's 3+, urine bacteria was absent, urine glucose was 3+, urine ascorbic acid was positive, urine toxicology was all within normal limits. Flu A and B were negative. CT of the brain, no acute intracranial pathology, chronic small vessel ischemic changes. Chest x-ray, stigmata for chronic obstructive pulmonary disease, no acute cardiopulmonary process was evident. IMPRESSION AND PLAN: Mr. Mayfield is an 87-year-old male with a past medical history significant for dementia, coronary artery disease, hypertension, diabetes, who presented to the emergency room with altered mental status, garbled speech, found to have hyperosmolar hyperglycemia, urinary tract infection. He will be admitted to the ICU for: 1. Hyperosmolar hyperglycemia syndrome. I will continue the patient on insulin drip. He received normal saline 2 L bolus in the emergency room. I will give him half normal saline bolus and continue normal saline 125 an hour. We will change his fluids as needed. I will repeat a BMP q.4 hours. We will monitor his potassium level and replace as needed. He will continue on insulin drip with hourly Accu-Cheks, titrate as needed. I suspect this is related to dehydration and underlying urinary tract infection. 2. Urinary tract infection. The patient has an indwelling Blair catheter, is due to be changed next week. We will change his Blair catheter. We will continue him on ceftriaxone 1 g IV daily. 3. Acute Kidney Injury: I suspect this is related to dehydration. We will continue with fluid replacement and monitor BMP. I will hold lisinopril and HCTZ at this time. 4. Hypertension. At this time, we are going to hold his lisinopril/ hydrochlorothiazide. 5. Coronary artery disease. I will continue his metoprolol as blood pressure allows. 6. Dementia. We will continue with supportive care. Avoid narcotics as I do not want to increase the risk of his delirium given his underlying infection. 7. Prostate cancer. Continue with indwelling Blair catheter. 8. Hypothyroid. TSH is currently pending. We will continue on his levothyroxine 25 mcg p.o. daily. 9. Fluid, electrolytes, and nutrition: The patient can be started on a clear liquid diet as tolerated. 10. Code status: He is a do not resuscitate/do not intubate. MOLST form has been completed with daughter who was present. 11. DVT prophylaxis: The patient has high risk scoring of 3. He will be started on heparin subcu. 12. Disposition: The patient will be inpatient on intensive care unit. TIME SPENT: Time spent on this admission was 60 minutes, greater than half that time was spent with the daughter discussing events leading thus far to this hospitalization, performing physical exam and discussing my plan of care with the daughter over the phone and completing the MOLST form. I have discussed this with my attending, Dr. Boris Magana; he is in agreement with my plan. LEILANI HENRY, CASINO CHANGE ATTENDANT [id number]/[facility] #: [id number] SERVANDO
[2018-07-22 16:43] LABS: BUN/Creatinine Ratio 39.8 (8-20); Calcium 9.2 mg/dL (8.6-10.3); EGFR African American 33.2 (>60); EGFR Non-African American 27.5 (>60); Magnesium 2.5 mg/dL (1.9-2.7); Phosphorus 2.9 mg/dL (2.5-5.0); Potassium 3.6 mmol/L (3.5-5.0)
[2018-07-22] MEDS: Heparin VIAL(*) 5000 UNITS/ML VIAL (FIVE THOUSAND) SUBCUT SCH (17:34)
[2018-07-22] MEDS ORDERED: D5W 1000 ML BAG* 1,000 ML IV SCH (18:00)
[2018-07-22 22:18] LABS: EGFR African American 35.8 (>60); EGFR Non-African American 29.6 (>60); Magnesium 2.5 mg/dL (1.9-2.7); Phosphorus 2.8 mg/dL (2.5-5.0); Potassium 3.8 mmol/L (3.5-5.0)
[2018-07-22] MEDS ORDERED: Dextrose 50% Syringe 50 ML* 25 GM/50 ML SYRINGE IV PUSH PRN (22:35)
--- NOTE | 2018-07-22 23:40 | PN ---
Progress Note - Progress Note Date of Service: 07/22/18 Note: Glucose better control. Patient not interested in eating. INsulin and IVFs off. Hgba1c: 16.6. Will start Lantus and lispro. COntinue close monitor of glucose overnight. Nutrition consult. Recommend endocrinology consult to help with management of frail elderly man. Lives with daughter so she could potentially give him insulin. Patient would be a good candidate for the PATH program (palliative care program)
[2018-07-23] MEDS: Heparin VIAL(*) 5000 UNITS/ML VIAL (FIVE THOUSAND) SUBCUT SCH ×4 (00:10→21:39)
[2018-07-23] MEDS: Insulin LISPRO* 1 UNITS UNIT SUBCUT SCH ×6 (00:15→23:02)
[2018-07-23] MEDS: Insulin GLARGINE(*) 1 UNITS UNIT SUBCUT SCH ×2 (00:26→23:02)
[2018-07-23 01:02] LABS: BUN/Creatinine Ratio 40.2 (8-20); Calcium 8.8 mg/dL (8.6-10.3); EGFR African American 36.4 (>60); EGFR Non-African American 30.1 (>60); Magnesium 2.4 mg/dL (1.9-2.7); Phosphorus 2.9 mg/dL (2.5-5.0); Potassium 3.9 mmol/L (3.5-5.0)
[2018-07-23] MEDS ORDERED: Insulin LISPRO* 1 UNITS UNIT SUBCUT ONE (02:19)
[2018-07-23] MEDS ORDERED: Dextrose 50% Syringe 50 ML* 25 GM/50 ML SYRINGE IV PUSH PRN ×2 (02:19→21:52)
[2018-07-23 06:35] LABS: ABS Basophils 0 10^3/ul (0-0.2); ABS Eosinophils 0.1 10^3/ul (0-0.6); ABS Monocytes 0.5 10^3/ul (0-0.8); ABS Neutrophils 7.1 10^3/ul (1.5-7.7); ABS Nucleated RBC 0 10^3/ul; Eosinophil % 1.4 %; Hematocrit 38 % (42-52); Hemoglobin 12.3 g/dl (14.0-18.0); Lymphocyte % 11.8 %; Mean Corpuscular HGB Conc 33 g/dl (31-36); Mean Corpuscular Hemoglobin 30 pg (27-31); Mean Corpuscular Volume 92 fL (80-94); Mean Platelet Volume 8.6 fL (7.4-10.4); Nucleated Red Blood Cells % 0; Platelet Count 146 10^3/ul (150-450); Red Blood Count 4.11 10^6/ul (4.00-5.40); Red Cell Distribution Width 15 % (10.5-15); White Blood Count 8.8 10^3/ul (3.5-10.8)
[2018-07-23 06:56] LABS: BUN/Creatinine Ratio 39.3 (8-20); Calcium 9.1 mg/dL (8.6-10.3); EGFR Non-African American 30.6 (>60); Potassium 3.9 mmol/L (3.5-5.0)
--- NOTE | 2018-07-23 10:31 | PN ---
Subjective Date of Service: 07/23/18 Interval History: Resting in bed on assessment. Patient is alert and cooperative with assessment and ROS. Denies chest pain/pressure, sob, cough, nausea, vomiting, diarrhea, lightheadedness. Objective Active Medications: Acetaminophen (Tylenol Tab*) 650 mg PO Q4H PRN PRN Reason: FEVER/PAIN Dextrose (D50w Syringe 50 Ml*) 12.5 gm IV PUSH .FOR FS < 60 - SS PRN PRN Reason: FS < 60 Heparin Sodium (Porcine) (Heparin Vial(*)) 5,000 units SUBCUT Q8HR [facility] Last Admin: 07/23/18 05:24 Dose: 5,000 units Ceftriaxone Sodium 1 gm/ (Sodium Chloride) 50 mls @ 200 mls/hr IVPB 1030 [facility] Dextrose/Sodium Chloride (D5w 1/4 Ns 1000 Ml Bag*) 1,000 mls @ 75 mls/hr IV PER RATE [facility] Stop: 07/24/18 00:19 Insulin Glargine (Lantus(*)) 10 units SUBCUT Q24H [facility] Last Admin: 07/23/18 00:26 Dose: 10 units Insulin Human Lispro (Humalog*) 0 units SUBCUT AC [facility]; Protocol Vital Signs - 8 hr 07/23/18 07/23/18 07:35 07:49 Temperature 97.2 F Pulse Rate 90 Respiratory 14 16 Rate Blood Pressure 129/54 (mmHg) O2 Sat by Pulse 100 Oximetry Oxygen Devices in Use Now: None Appearance: Comfortable, NAD Eyes: No Scleral Icterus Ears/Nose/Mouth/Throat: Mucous Membranes Moist Neck: NL Appearance and Movements; NL JVP Respiratory: Symmetrical Chest Expansion and Respiratory Effort, Clear to Auscultation Cardiovascular: NL Sounds; No Murmurs; No JVD, RRR, No Edema Abdominal: NL Sounds; No Tenderness; No Distention Lymphatic: No Cervical Adenopathy Extremities: No Edema Skin: No Rash or Ulcers, No Nodules or Sclerosis Neurological: - - Alert to self and place. Uncertain of time/date. Result Diagrams: 07/23/18 06:08 07/23/18 13:21 Additional Lab and Data: Laboratory Results - last 24 hr 07/22/18 07/22/18 07/22/18 09:24 09:24 09:24 WBC RBC Hgb Hct MCV MCH MCHC RDW Plt Count MPV Neut % (Auto) Lymph % (Auto) [place] % (Auto) Eos % (Auto) Baso % (Auto) Absolute Neuts (auto) Absolute Lymphs (auto) Absolute Monos (auto) Absolute Eos (auto) Absolute Basos (auto) Absolute Nucleated RBC Nucleated RBC % Sodium Potassium Chloride Carbon Dioxide Anion Gap BUN Creatinine Est GFR ( Amer) Est GFR (Non-Af Amer) BUN/Creatinine Ratio Glucose POC Glucose (mg/dL) Hemoglobin A1c 16.6 H Serum Osmolality 381 H* Calcium Phosphorus Magnesium TSH 3.01 07/22/18 07/22/18 07/22/18 11:47 12:10 13:15 WBC RBC Hgb Hct MCV MCH MCHC RDW Plt Count MPV Neut % (Auto) Lymph % (Auto) [place] % (Auto) Eos % (Auto) Baso % (Auto) Absolute Neuts (auto) Absolute Lymphs (auto) Absolute Monos (auto) Absolute Eos (auto) Absolute Basos (auto) Absolute Nucleated RBC Nucleated RBC % Sodium 148 H Potassium 4.1 Chloride 110 Carbon Dioxide 26 Anion Gap 12 H BUN 101 H Creatinine 2.41 H Est GFR ( Amer) 30.8 Est GFR (Non-Af Amer) 25.5 BUN/Creatinine Ratio 41.9 H Glucose 653 H* 401 H POC Glucose (mg/dL) > 444 H* Hemoglobin A1c Serum Osmolality Calcium 9.9 Phosphorus Magnesium TSH 07/22/18 07/22/18 07/22/18 14:06 15:50 17:15 WBC RBC Hgb Hct MCV MCH MCHC RDW Plt Count MPV Neut % (Auto) Lymph % (Auto) [place] % (Auto) Eos % (Auto) Baso % (Auto) Absolute Neuts (auto) Absolute Lymphs (auto) Absolute Monos (auto) Absolute Eos (auto) Absolute Basos (auto) Absolute Nucleated RBC Nucleated RBC % Sodium 152 H Potassium 3.6 Chloride 114 H Carbon Dioxide 29 Anion Gap 9 BUN 90 H Creatinine 2.26 H Est GFR ( Amer) 33.2 Est GFR (Non-Af Amer) 27.5 BUN/Creatinine Ratio 39.8 H Glucose 202 H POC Glucose (mg/dL) > 444 H* 196 H Hemoglobin A1c Serum Osmolality Calcium 9.2 Phosphorus 2.9 Magnesium 2.5 TSH 07/22/18 07/22/18 07/22/18 18:20 19:01 20:16 WBC RBC Hgb Hct MCV MCH MCHC RDW Plt Count MPV Neut % (Auto) Lymph % (Auto) [place] % (Auto) Eos % (Auto) Baso % (Auto) Absolute Neuts (auto) Absolute Lymphs (auto) Absolute Monos (auto) Absolute Eos (auto) Absolute Basos (auto) Absolute Nucleated RBC Nucleated RBC % Sodium Potassium Chloride Carbon Dioxide Anion Gap BUN Creatinine Est GFR ( Amer) Est GFR (Non-Af Amer) BUN/Creatinine Ratio Glucose POC Glucose (mg/dL) 153 H 141 H 140 H Hemoglobin A1c Serum Osmolality Calcium Phosphorus Magnesium TSH 07/22/18 07/22/18 07/22/18 20:42 21:19 22:46 WBC RBC Hgb Hct MCV MCH MCHC RDW Plt Count MPV Neut % (Auto) Lymph % (Auto) [place] % (Auto) Eos % (Auto) Baso % (Auto) Absolute Neuts (auto) Absolute Lymphs (auto) Absolute Monos (auto) Absolute Eos (auto) Absolute Basos (auto) Absolute Nucleated RBC Nucleated RBC % Sodium 151 H Potassium 3.8 Chloride 113 H Carbon Dioxide 30 Anion Gap 8 BUN 87 H Creatinine 2.12 H Est GFR ( Amer) 35.8 Est GFR (Non-Af Amer) 29.6 BUN/Creatinine Ratio 41.0 H Glucose 159 H POC Glucose (mg/dL) 173 H 232 H Hemoglobin A1c Serum Osmolality Calcium 9.0 Phosphorus 2.8 Magnesium 2.5 TSH 07/23/18 07/23/18 07/23/18 00:15 00:31 02:04 WBC RBC Hgb Hct MCV MCH MCHC RDW Plt Count MPV Neut % (Auto) Lymph % (Auto) [place] % (Auto) Eos % (Auto) Baso % (Auto) Absolute Neuts (auto) Absolute Lymphs (auto) Absolute Monos (auto) Absolute Eos (auto) Absolute Basos (auto) Absolute Nucleated RBC Nucleated RBC % Sodium 150 H Potassium 3.9 Chloride 113 H Carbon Dioxide 27 Anion Gap 10 BUN 84 H Creatinine 2.09 H Est GFR ( Amer) 36.4 Est GFR (Non-Af Amer) 30.1 BUN/Creatinine Ratio 40.2 H Glucose 251 H POC Glucose (mg/dL) 238 H 250 H Hemoglobin A1c Serum Osmolality Calcium 8.8 Phosphorus 2.9 Magnesium 2.4 TSH 07/23/18 07/23/18 07/23/18 05:12 06:08 06:08 WBC 8.8 RBC 4.11 Hgb 12.3 L Hct 38 L MCV 92 MCH 30 MCHC 33 RDW 15 Plt Count 146 L MPV 8.6 Neut % (Auto) 80.7 Lymph % (Auto) 11.8 [place] % (Auto) 5.8 Eos % (Auto) 1.4 Baso % (Auto) 0.3 Absolute Neuts (auto) 7.1 Absolute Lymphs (auto) 1.0 Absolute Monos (auto) 0.5 Absolute Eos (auto) 0.1 Absolute Basos (auto) 0 Absolute Nucleated RBC 0 Nucleated RBC % 0 Sodium 150 H Potassium 3.9 Chloride 115 H Carbon Dioxide 26 Anion Gap 9 BUN 81 H Creatinine 2.06 H Est GFR ( Amer) 37.0 Est GFR (Non-Af Amer) 30.6 BUN/Creatinine Ratio 39.3 H Glucose 161 H POC Glucose (mg/dL) 141 H Hemoglobin A1c Serum Osmolality Calcium 9.1 Phosphorus Magnesium TSH 07/23/18 07/23/18 07:39 09:03 WBC RBC Hgb Hct MCV MCH MCHC RDW Plt Count MPV Neut % (Auto) Lymph % (Auto) [place] % (Auto) Eos % (Auto) Baso % (Auto) Absolute Neuts (auto) Absolute Lymphs (auto) Absolute Monos (auto) Absolute Eos (auto) Absolute Basos (auto) Absolute Nucleated RBC Nucleated RBC % Sodium Potassium Chloride Carbon Dioxide Anion Gap BUN Creatinine Est GFR ( Amer) Est GFR (Non-Af Amer) BUN/Creatinine Ratio Glucose POC Glucose (mg/dL) 155 H 124 H Hemoglobin A1c Serum Osmolality Calcium Phosphorus Magnesium TSH Microbiology and Other Data: Microbiology 07/22/18 09:31 Blood Venous Aerobic Blood Culture - Preliminary No Growth Day 1 07/22/18 09:31 Blood Venous Anaerobic Blood Culture - Preliminary No Growth Day 1 07/22/18 09:24 Blood Venous Aerobic Blood Culture - Preliminary No Growth Day 1 07/22/18 09:24 Blood Venous Anaerobic Blood Culture - Preliminary No Growth Day 1 07/22/18 14:25 Nasal Nasal Screen MRSA (PCR) - Final Mrsa Not Detected 07/22/18 09:15 Nasal Influenza Types A,B Antigen - Final Specimen received for Influenza A/B Molecular testing Assess/Plan/Problems-Billing Assessment: 87 yr old male with pmh of dementia, cad, htn, dm2, prostate CA; who presented to the ED with AMS, decrease intake, and new onset incontinence of stool and was found to have BG of 800 and LOLA - Patient Problems (1) 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 Comment: - BG normalizing - Cont lantus 10 unit daily - Endocrinology consulted and I appreciate their assistance. Recommendations as follows: Cont 10 unit glargine once daily at night, stop glipizide at discharge and continue glargine (2) Hypernatremia Comment: - d5 06/20 NS ordered at 75 mls per hour and increased to 150 ml/hr on recommendations of Endocrinology. - Recheck BMP tonight - Serum and urine osmo ordered by endocrinology (3) Dementia Comment: - Supportive Care (4) CAD (coronary artery disease) Comment: - Cont Metoprolol as BP allows (5) HTN (hypertension) Comment: - Normotensive - Cont to hold Lisinopril/HCTZ (6) History of prostate cancer Comment: - Blair changed yesterday. (7) Hypothyroid Comment: - TSH 3.01 - Cont Levothyroxine (8) Urinary tract infection Comment: - Cont Rocephin - Awaiting cultures Status and Disposition: Inpatient. Per telehealth case manager patient was to be admitted to [facility] yesterday , but family brought him here instead to due symptoms, therefore, he can be discharged to [facility]? Attending: Bernabe Dougherty
[2018-07-23] MEDS ORDERED: D5W 1/4 NS 1000 ML BAG* 1,000 ML IV SCH (11:00)
[2018-07-23] MEDS: Metoprolol Succinate XL TAB* 25 MG PO SCH (11:06)
[2018-07-23] MEDS: cefTRIAXone(*) 1 GM in NS 0.9% 50 ML* 50 ML IVPB SCH (11:06)
--- NOTE | 2018-07-23 12:45 | CONSULT ---
Consult Consult: CONSULT: [facility] Inpatient Consult Note Date of Consult: 07/23/18 Reason for Consult: HHS Reason for Admission: HHS with dysphasia ASSESSMENT: 87 yo M with type 2 diabetes for >20 years, presenting with HHS and dysphasia. Acute hypernatremia with correction of hyperglycemia, no history of CHF. He has transitioned from IV to SQ insulin today and BS have remained <200 mg/dL with 10 units glargine. Acute hypernatremia without polydipsia, likely related to volume status but will check serum and urine for sodium retention. Hypotension noted at home, diastolic BP soft here, likely due to volume status. Will check AM cortisol to rule out adrenal insufficiency. Hypothyroidism stable on 25 mcg levothyroxine. PLAN: - Continue glargine 10 units once daily at night - Stop glipizide 2.5 mg on discharge and continue glargine - Prescription for home glucose monitor, test strips, and lancets on discharge - Recommend increasing D5W to 150mls/hr for acute hypernatremia - Urine and serum osmolality, urine and serum sodium to rule out DI associated hypernatremia - AM cortisol - Continue 25 mcg levothyroxine SUBJECTIVE: History of Present Illness: 87 yo M with long-standing diabetes, hypothyroidism , and dementia, now admitted for HHS with AMS and LOLA. Due to dementia, history is obtained from family members at bedside. Mr. Mayfield was living independently with until September 2017 when she . He now lives with daughter's family. Daughter reports he has had decreased appetite and mobility since 2017. In the last week weakness has progressed such that he is bed-bound. His daughter has been supplementing food with Boost. She reports he drinks about a gallon a day of orange juice and water typically. On 07/20/17 he had significant decrease in fluid intake and refused oral medications. He was noted to have garbled speech. The following day he presented to the hospital where he was noted to have HHS with BG 800 and LOLA with creatinine 2.61, TSH 3.1. He was repleted with IV fluids and insulin. Hyperglycemia resolved within 6 hours though he developed hypernatremia with repletion. Hypernatremia has continued despite repletion with 75 mls/hr D5W. Family reports not able to check blood sugars at home. They are also concerned about reported hypotension with systolic as low as 54 mmHg. This is his frst admission for [facility]. His currently home regiment is glipizide 2.5 mg QAM and levothyroxine 25 mcg daily. Plans to be discharged to [facility] as daughter is not able to care for increasing needs. PAST MEDICAL HISTORY CAD (coronary artery disease) (Acute) Dementia (Acute) HTN (hypertension) (Acute) History of prostate cancer (Acute) Type 2 diabetes mellitus Hypothyroid (Acute) Medications Prior to Admission: glipiZIDE TAB.XL* [Glucotrol Xl*] 2.5 mg PO QAM 05/14/12 [History Confirmed 11/02] Levothyroxine TAB* [Synthroid 25 MCG TAB*] 25 mcg PO 0800 02/23/15 [History Confirmed 07/22/18] Lisinopril/HCTZ 20/12.5(NF) [Zestoretic 20/12.5(NF)] 1 tab PO QAM 02/23/15 [ History Confirmed 07/22/18] Metoprolol Succinate XL TAB* [Toprol XL TAB*] 25 mg PO DAILY 07/22/18 [History Confirmed 07/22/18] Inpatient Medications: Acetaminophen (Tylenol Tab*) 650 mg PO Q4H PRN PRN Reason: FEVER/PAIN Dextrose (D50w Syringe 50 Ml*) 12.5 gm IV PUSH .FOR FS < 60 - SS PRN PRN Reason: FS < 60 Heparin Sodium (Porcine) (Heparin Vial(*)) 5,000 units SUBCUT Q8HR [facility] Last Admin: 07/23/18 12:23 Dose: 5,000 units Ceftriaxone Sodium 1 gm/ (Sodium Chloride) 50 mls @ 200 mls/hr IVPB 1030 [facility] Last Admin: 07/23/18 11:06 Dose: 200 mls/hr Dextrose/Sodium Chloride (D5w 1/4 Ns 1000 Ml Bag*) 1,000 mls @ 75 mls/hr IV PER RATE [facility] Stop: 07/24/18 00:19 Last Admin: 07/23/18 12:23 Dose: 75 mls/hr Insulin Glargine (Lantus(*)) 10 units SUBCUT Q24H [facility] Last Admin: 07/23/18 00:26 Dose: 10 units Insulin Human Lispro (Humalog*) 0 units SUBCUT AC [facility]; Protocol Last Admin: 07/23/18 12:23 Dose: 1 unit Levothyroxine Sodium (Synthroid Tab*) 25 mcg PO 0600 [facility] Metoprolol Succinate (Toprol Xl Tab*) 25 mg PO DAILY [facility] Last Admin: 07/23/18 11:06 Dose: 25 mg Allergies: No Known Allergies Allergy (Verified 07/22/18 12:43) Social History: Lives with daughter. Denies alcohol and tobacco use. Family History: Non-contributory Review of Systems: Patient states he "has no complaints." 12 point review otherwise negative. OBJECTIVE: Vital Signs Temp Pulse Resp BP Pulse Ox 97.5 F 90 18 106/44 100 07/23/18 14:53 07/23/18 14:53 07/23/18 14:53 07/23/18 14:53 07/23/18 14:53 General: Alert, oriented to self, resting in bed. ENT: No thyromegaly, no bruit, no lymphadenopathy Chest: CTAB without wheezes or crackles CV: RRR without murmur. No edema bilateral lower extremities. Abdomen: soft, non-tender Extremities: Left lateral foot with multiple shallow ulcerations with purulent discharge, tenderness, warmth. Skin: Warm, dry, no rashes. Neuro:Grossly intact sensation bilateral extremities Labs: Laboratory Results - last 24 hr 07/22/18 07/22/18 07/22/18 09:24 14:06 15:50 WBC RBC Hgb Hct MCV MCH MCHC RDW Plt Count MPV Neut % (Auto) Lymph % (Auto) [place] % (Auto) Eos % (Auto) Baso % (Auto) Absolute Neuts (auto) Absolute Lymphs (auto) Absolute Monos (auto) Absolute Eos (auto) Absolute Basos (auto) Absolute Nucleated RBC Nucleated RBC % Sodium 152 H Potassium 3.6 Chloride 114 H Carbon Dioxide 29 Anion Gap 9 BUN 90 H Creatinine 2.26 H Est GFR ( Amer) 33.2 Est GFR (Non-Af Amer) 27.5 BUN/Creatinine Ratio 39.8 H Glucose 202 H POC Glucose (mg/dL) > 444 H* Hemoglobin A1c 16.6 H Serum Osmolality Calcium 9.2 Phosphorus 2.9 Magnesium 2.5 07/22/18 07/22/18 07/22/18 17:15 18:20 19:01 WBC RBC Hgb Hct MCV MCH MCHC RDW Plt Count MPV Neut % (Auto) Lymph % (Auto) [place] % (Auto) Eos % (Auto) Baso % (Auto) Absolute Neuts (auto) Absolute Lymphs (auto) Absolute Monos (auto) Absolute Eos (auto) Absolute Basos (auto) Absolute Nucleated RBC Nucleated RBC % Sodium Potassium Chloride Carbon Dioxide Anion Gap BUN Creatinine Est GFR ( Amer) Est GFR (Non-Af Amer) BUN/Creatinine Ratio Glucose POC Glucose (mg/dL) 196 H 153 H 141 H Hemoglobin A1c Serum Osmolality Calcium Phosphorus Magnesium 07/22/18 07/22/18 07/22/18 20:16 20:42 21:19 WBC RBC Hgb Hct MCV MCH MCHC RDW Plt Count MPV Neut % (Auto) Lymph % (Auto) [place] % (Auto) Eos % (Auto) Baso % (Auto) Absolute Neuts (auto) Absolute Lymphs (auto) Absolute Monos (auto) Absolute Eos (auto) Absolute Basos (auto) Absolute Nucleated RBC Nucleated RBC % Sodium 151 H Potassium 3.8 Chloride 113 H Carbon Dioxide 30 Anion Gap 8 BUN 87 H Creatinine 2.12 H Est GFR ( Amer) 35.8 Est GFR (Non-Af Amer) 29.6 BUN/Creatinine Ratio 41.0 H Glucose 159 H POC Glucose (mg/dL) 140 H 173 H Hemoglobin A1c Serum Osmolality Calcium 9.0 Phosphorus 2.8 Magnesium 2.5 07/22/18 07/23/18 07/23/18 22:46 00:15 00:31 WBC RBC Hgb Hct MCV MCH MCHC RDW Plt Count MPV Neut % (Auto) Lymph % (Auto) [place] % (Auto) Eos % (Auto) Baso % (Auto) Absolute Neuts (auto) Absolute Lymphs (auto) Absolute Monos (auto) Absolute Eos (auto) Absolute Basos (auto) Absolute Nucleated RBC Nucleated RBC % Sodium 150 H Potassium 3.9 Chloride 113 H Carbon Dioxide 27 Anion Gap 10 BUN 84 H Creatinine 2.09 H Est GFR ( Amer) 36.4 Est GFR (Non-Af Amer) 30.1 BUN/Creatinine Ratio 40.2 H Glucose 251 H POC Glucose (mg/dL) 232 H 238 H Hemoglobin A1c Serum Osmolality Calcium 8.8 Phosphorus 2.9 Magnesium 2.4 02/06/19 02/06/19 02/06/19 02:04 05:12 06:08 WBC 8.8 RBC 4.11 Hgb 12.3 L Hct 38 L MCV 92 MCH 30 MCHC 33 RDW 15 Plt Count 146 L MPV 8.6 Neut % (Auto) 80.7 Lymph % (Auto) 11.8 [place] % (Auto) 5.8 Eos % (Auto) 1.4 Baso % (Auto) 0.3 Absolute Neuts (auto) 7.1 Absolute Lymphs (auto) 1.0 Absolute Monos (auto) 0.5 Absolute Eos (auto) 0.1 Absolute Basos (auto) 0 Absolute Nucleated RBC 0 Nucleated RBC % 0 Sodium Potassium Chloride Carbon Dioxide Anion Gap BUN Creatinine Est GFR ( Amer) Est GFR (Non-Af Amer) BUN/Creatinine Ratio Glucose POC Glucose (mg/dL) 250 H 141 H Hemoglobin A1c Serum Osmolality Calcium Phosphorus Magnesium 07/23/18 07/23/18 07/23/18 06:08 07:39 09:03 WBC RBC Hgb Hct MCV MCH MCHC RDW Plt Count MPV Neut % (Auto) Lymph % (Auto) [place] % (Auto) Eos % (Auto) Baso % (Auto) Absolute Neuts (auto) Absolute Lymphs (auto) Absolute Monos (auto) Absolute Eos (auto) Absolute Basos (auto) Absolute Nucleated RBC Nucleated RBC % Sodium 150 H Potassium 3.9 Chloride 115 H Carbon Dioxide 26 Anion Gap 9 BUN 81 H Creatinine 2.06 H Est GFR ( Amer) 37.0 Est GFR (Non-Af Amer) 30.6 BUN/Creatinine Ratio 39.3 H Glucose 161 H POC Glucose (mg/dL) 155 H 124 H Hemoglobin A1c Serum Osmolality Calcium 9.1 Phosphorus Magnesium 07/23/18 07/23/18 11:27 13:21 WBC RBC Hgb Hct MCV MCH MCHC RDW Plt Count MPV Neut % (Auto) Lymph % (Auto) [place] % (Auto) Eos % (Auto) Baso % (Auto) Absolute Neuts (auto) Absolute Lymphs (auto) Absolute Monos (auto) Absolute Eos (auto) Absolute Basos (auto) Absolute Nucleated RBC Nucleated RBC % Sodium Potassium Chloride Carbon Dioxide Anion Gap BUN Creatinine Est GFR ( Amer) Est GFR (Non-Af Amer) BUN/Creatinine Ratio Glucose POC Glucose (mg/dL) 189 H Hemoglobin A1c Serum Osmolality 339 H* Calcium Phosphorus Magnesium
[2018-07-23] MEDS: D5W 1/4 NS 1000 ML BAG* 1,000 ML IV SCH (17:36)
[2018-07-23 19:34] LABS: BUN/Creatinine Ratio 38.5 (8-20); Calcium 8.7 mg/dL (8.6-10.3); EGFR African American 41.3 (>60); EGFR Non-African American 34.2 (>60); Potassium 4.4 mmol/L (3.5-5.0)
[2018-07-24] MEDS: Heparin VIAL(*) 5000 UNITS/ML VIAL (FIVE THOUSAND) SUBCUT SCH ×3 (06:09→21:15)
[2018-07-24] MEDS: Levothyroxine TAB* 25 MCG TAB PO SCH (06:09)
[2018-07-24 06:54] LABS: Hematocrit 39 % (42-52); Hemoglobin 11.7 g/dl (14.0-18.0); Mean Corpuscular HGB Conc 30 g/dl (31-36); Mean Corpuscular Hemoglobin 30 pg (27-31); Mean Corpuscular Volume 100 fL (80-94); Mean Platelet Volume 8.7 fL (7.4-10.4); Platelet Count 143 10^3/ul (150-450); Red Blood Count 3.89 10^6/ul (4.00-5.40); Red Cell Distribution Width 16 % (10.5-15); White Blood Count 5.7 10^3/ul (3.5-10.8)
[2018-07-24 07:06] LABS: BUN/Creatinine Ratio 40.6 (8-20); Calcium 8.6 mg/dL (8.6-10.3); EGFR African American 49.5 (>60); EGFR Non-African American 40.9 (>60); Magnesium 2.4 mg/dL (1.9-2.7)
[2018-07-24 07:35] LABS: ABS Basophils 0 10^3/ul (0-0.2); ABS Eosinophils 0.1 10^3/ul (0-0.6); ABS Lymphocytes 0.8 10^3/ul (1.0-4.8); ABS Monocytes 0.4 10^3/ul (0-0.8); ABS Neutrophils 4.4 10^3/ul (1.5-7.7); ABS Nucleated RBC 0 10^3/ul; Lymphocyte % 13.4 %; Nucleated Red Blood Cells % 0.1
[2018-07-24] MEDS: D5W 1/4 NS 1000 ML BAG* 1,000 ML IV SCH (08:00)
[2018-07-24] MEDS ORDERED: Dextrose 50% Syringe 50 ML* 25 GM/50 ML SYRINGE IV PUSH PRN (08:25)
[2018-07-24] MEDS ORDERED: Insulin LISPRO* 1 UNITS UNIT SUBCUT ONE (08:53)
[2018-07-24] MEDS: Insulin LISPRO* 1 UNITS UNIT SUBCUT SCH ×5 (08:55→17:24)
[2018-07-24] MEDS: Metoprolol Succinate XL TAB* 25 MG PO SCH (08:56)
[2018-07-24] MEDS: cefTRIAXone(*) 1 GM in NS 0.9% 50 ML* 50 ML IVPB SCH (10:52)
[2018-07-24 15:02] LABS: BUN/Creatinine Ratio 38.8 (8-20); Calcium 8.4 mg/dL (8.6-10.3); EGFR African American 52.5 (>60); EGFR Non-African American 43.4 (>60); Potassium 3.9 mmol/L (3.5-5.0)
[2018-07-24] MEDS ORDERED: D5W 1000 ML BAG* 1,000 ML IV SCH (17:00)
--- NOTE | 2018-07-24 17:02 | PN ---
Progress Note - Progress Note Date of Service: 07/24/18 Note: [facility] Inpatient Follow-up Note ASSESSMENT: 87 yo M with dementia, now admitted with HHS, hypernatremia and AMS. His blood glucose has risen significantly since resumption of PO intake -- see recommendations below. His sodium is now in the normal range with no defect in urine concentrating ability. AM cortisol is normal. PLAN: - d/c D5, change to NS if fluids needed - encourage PO free water intake - increase Lantus to 20 units QHS - start glipizide XL 2.5mg once daily tomorrow and at discharge - continue Humalog SSI SUBJECTIVE: Inpatient Medications: Alert, oriented, feeling well. Acetaminophen (Tylenol Tab*) 650 mg PO Q4H PRN PRN Reason: FEVER/PAIN Dextrose (D50w Syringe 50 Ml*) 12.5 gm IV PUSH .FOR FS < 60 - SS PRN PRN Reason: FS < 60 Heparin Sodium (Porcine) (Heparin Vial(*)) 5,000 units SUBCUT Q8HR [facility] Last Admin: 07/24/18 13:25 Dose: 5,000 units Ceftriaxone Sodium 1 gm/ (Sodium Chloride) 50 mls @ 200 mls/hr IVPB 1030 [facility] Last Admin: 07/24/18 10:52 Dose: 200 mls/hr Dextrose (D5w 1000 Ml Bag*) 1,000 mls @ 75 mls/hr IV PER RATE [facility] Stop: 07/25/18 06:19 Insulin Glargine (Lantus(*)) 10 units SUBCUT Q24H [facility] Last Admin: 07/23/18 23:02 Dose: 10 units Insulin Human Lispro (Humalog*) 0 units SUBCUT AC [facility]; Protocol Last Admin: 07/24/18 13:25 Dose: 10 units Levothyroxine Sodium (Synthroid Tab*) 25 mcg PO 0600 [facility] Last Admin: 07/24/18 06:09 Dose: 25 mcg Metoprolol Succinate (Toprol Xl Tab*) 25 mg PO DAILY [facility] Last Admin: 07/24/18 08:56 Dose: 25 mg OBJECTIVE: Temp Pulse Resp BP Pulse Ox 97.6 F 70 18 106/51 99 07/24/18 14:02 07/24/18 14:02 07/24/18 14:02 07/24/18 14:02 07/24/18 14:02 General: alert, pleasant, oriented, no distress ENT: neck supple, no thyromegaly, no bruit is heard Chest: CTAB, no wheezing or crackles CV: RRR, no murmur Abdomen: soft, non-tender Extremities: no edema, distal pulses intact Skin: warm, dry, no rash Neuro: grossly intact motor/sensory in extremities Psych: restricted affect, pleasant Labs: WBC 5.7 10^3/ul (3.5-10.8) 07/24/18 06:16 RBC 3.89 10^6/ul (4.00-5.40) L 07/24/18 06:16 Hgb 11.7 g/dl (14.0-18.0) L 07/24/18 06:16 Hct 39 % (42-52) L 07/24/18 06:16 MCV 100 fL (80-94) H 07/24/18 06:16 MCH 30 pg (27-31) 07/24/18 06:16 MCHC 30 g/dl (31-36) L 07/24/18 06:16 RDW 16 % (10.5-15) H 07/24/18 06:16 Plt Count 143 10^3/ul (150-450) L 07/24/18 06:16 MPV 8.7 fL (7.4-10.4) 07/24/18 06:16 Neut % (Auto) 77.3 % 07/24/18 06:16 Lymph % (Auto) 13.4 % 07/24/18 06:16 [place] % (Auto) 6.7 % 07/24/18 06:16 Eos % (Auto) 2.0 % 07/24/18 06:16 Baso % (Auto) 0.6 % 07/24/18 06:16 Absolute Neuts (auto) 4.4 10^3/ul (1.5-7.7) 07/24/18 06:16 Absolute Lymphs (auto) 0.8 10^3/ul (1.0-4.8) L 07/24/18 06:16 Absolute Monos (auto) 0.4 10^3/ul (0-0.8) 07/24/18 06:16 Absolute Eos (auto) 0.1 10^3/ul (0-0.6) 07/24/18 06:16 Absolute Basos (auto) 0 10^3/ul (0-0.2) 07/24/18 06:16 Absolute Nucleated RBC 0 10^3/ul 07/24/18 06:16 Nucleated RBC % 0.1 07/24/18 06:16 INR (Anticoag Therapy) 0.96 (0.77-1.02) 07/22/18 09:24 VBG pH 7.39 (7.32-7.43) 07/22/18 09:24 VBG pCO2 55 mmHg (41-51) H 07/22/18 09:24 VBG pO2 < 38.0 mmHg (35-45) 07/22/18 09:24 VBG HCO3 28.3 mmol/L (24-28) H 07/22/18 09:24 VBG O2 Saturation 28.4 % (70-80) L 07/22/18 09:24 VBG Base Excess 6.7 mmol/L (0.0-4.0) H 07/22/18 09:24 Sodium 144 mmol/L (135-145) 07/24/18 14:17 Potassium 3.9 mmol/L (3.5-5.0) 07/24/18 14:17 Chloride 112 mmol/L (101-111) H 07/24/18 14:17 Carbon Dioxide 26 mmol/L (22-32) 07/24/18 14:17 Anion Gap 6 mmol/L (2-11) 07/24/18 14:17 BUN 59 mg/dL (6-24) H 07/24/18 14:17 Creatinine 1.52 mg/dL (0.67-1.17) H 07/24/18 14:17 Est GFR ( Amer) 52.5 (>60) 07/24/18 14:17 Est GFR (Non-Af Amer) 43.4 (>60) 07/24/18 14:17 BUN/Creatinine Ratio 38.8 (8-20) H 07/24/18 14:17 Glucose 415 mg/dL (70-100) H 07/24/18 14:17 POC Glucose (mg/dL) > 444 mg/dL (70-100) H* 07/24/18 12:09 Hemoglobin A1c 16.6 % (4.0-5.6) H 07/22/18 09:24 Serum Osmolality 339 mOsm/kg (275-295) H* 07/23/18 13:21 Lactic Acid 1.5 mmol/L (0.5-2.0) 07/22/18 09:24 Calcium 8.4 mg/dL (8.6-10.3) L 07/24/18 14:17 Phosphorus 2.9 mg/dL (2.5-5.0) 07/23/18 00:31 Magnesium 2.4 mg/dL (1.9-2.7) 07/24/18 06:16 Total Bilirubin 0.60 mg/dL (0.2-1.0) 07/22/18 09:24 AST 11 U/L (13-39) L 07/22/18 09:24 ALT 19 U/L (7-52) 07/22/18 09:24 Alkaline Phosphatase 87 U/L (34-104) 07/22/18 09:24 Ammonia 36 mcmol/L (16-53) 07/22/18 09:24 Troponin I 0.03 ng/mL (<0.04) 07/22/18 09:24 Total Protein 7.1 g/dL (6.4-8.9) 07/22/18 09:24 Albumin 3.6 g/dL (3.2-5.2) 07/22/18 09:24 Globulin 3.5 g/dL (2-4) 07/22/18 09:24 Albumin/Globulin Ratio 1.0 (1-3) 07/22/18 09:24 TSH 3.01 mcIU/mL (0.34-5.60) 07/22/18 09:24 Cortisol 10.87 mcg/dL 07/24/18 06:16 Urine Color Yellow 07/22/18 09:20 Urine Appearance Cloudy 07/22/18 09:20 Urine pH 8.0 (5-9) 07/22/18 09:20 Ur Specific [place] 1.022 (1.010-1.030) 07/22/18 09:20 Urine Protein Negative (Negative) 07/22/18 09:20 Urine Ketones Trace (Negative) A 07/22/18 09:20 Urine Blood 1+ (Negative) A 07/22/18 09:20 Urine Nitrate Negative (Negative) 07/22/18 09:20 Urine Bilirubin Negative (Negative) 07/22/18 09:20 Urine Urobilinogen Negative (Negative) 07/22/18 09:20 Ur Leukocyte Esterase 3+ (Negative) A 07/22/18 09:20 Urine WBC (Auto) 3+(>20/hpf) (Absent) A 07/22/18 09:20 Urine RBC (Auto) 3+(>10/hpf) (Absent) A 07/22/18 09:20 Urine Bacteria Absent (Absent) 07/22/18 09:20 Urine Osmolality 566 mOsm/kg (100-1150) 07/23/18 14:34 U Sodium Concentration 22 mmol/L 07/23/18 14:34 Urine Glucose 3+(>=500 mg/dl) (Negative) A 07/22/18 09:20 Urine Ascorbic Acid * (Negative) A 07/22/18 09:20 Urine Opiates Screen None detected (None Detect) 07/22/18 09:31 Ur Barbiturates Screen None detected (None Detect) 07/22/18 09:31 Ur Phencyclidine Scrn None detected (None Detect) 07/22/18 09:31 Ur Amphetamines Screen None detected (None Detect) 07/22/18 09:31 U Benzodiazepines Scrn None detected (None Detect) 07/22/18 09:31 Urine Cocaine Screen None detected (None Detect) 07/22/18 09:31 U Cannabinoids Screen None detected (None Detect) 07/22/18 09:31 Influenza A (Rapid) Negative (Negative) 07/22/18 09:34 Influenza B (Rapid) Negative (Negative) 07/22/18 09:34
--- NOTE | 2018-07-24 17:58 | PN ---
Subjective Date of Service: 07/24/18 Interval History: Resting in bed on assessment. Alert to self and place. Engaging well in ROS and physical exam. Denies pain, chest pain, sob, nausea, vomiting, dizziness. Objective Active Medications: Acetaminophen (Tylenol Tab*) 650 mg PO Q4H PRN PRN Reason: FEVER/PAIN Dextrose (D50w Syringe 50 Ml*) 12.5 gm IV PUSH .FOR FS < 60 - SS PRN PRN Reason: FS < 60 Heparin Sodium (Porcine) (Heparin Vial(*)) 5,000 units SUBCUT Q8HR [facility] Last Admin: 07/24/18 13:25 Dose: 5,000 units Ceftriaxone Sodium 1 gm/ (Sodium Chloride) 50 mls @ 200 mls/hr IVPB 1030 [facility] Last Admin: 07/24/18 10:52 Dose: 200 mls/hr Dextrose (D5w 1000 Ml Bag*) 1,000 mls @ 75 mls/hr IV PER RATE [facility] Stop: 07/25/18 06:19 Last Admin: 07/24/18 17:24 Dose: 75 mls/hr Insulin Glargine (Lantus(*)) 10 units SUBCUT Q24H [facility] Last Admin: 07/23/18 23:02 Dose: 10 units Insulin Human Lispro (Humalog*) 0 units SUBCUT AC [facility]; Protocol Last Admin: 07/24/18 17:24 Dose: 6 units Levothyroxine Sodium (Synthroid Tab*) 25 mcg PO 0600 [facility] Last Admin: 07/24/18 06:09 Dose: 25 mcg Metoprolol Succinate (Toprol Xl Tab*) 25 mg PO DAILY [facility] Last Admin: 07/24/18 08:56 Dose: 25 mg Vital Signs - 8 hr 07/24/18 07/24/18 10:45 14:02 Temperature 97.4 F 97.6 F Pulse Rate 66 70 Respiratory 16 18 Rate Blood Pressure 105/51 106/51 (mmHg) O2 Sat by Pulse 100 99 Oximetry Oxygen Devices in Use Now: Nasal Cannula Appearance: Comfortable, NAD Eyes: No Scleral Icterus Ears/Nose/Mouth/Throat: Clear Oropharnyx, Mucous Membranes Moist Neck: NL Appearance and Movements; NL JVP Respiratory: Symmetrical Chest Expansion and Respiratory Effort, Clear to Auscultation Cardiovascular: NL Sounds; No Murmurs; No JVD, RRR, No Edema Abdominal: NL Sounds; No Tenderness; No Distention Lymphatic: No Cervical Adenopathy Extremities: No Edema Skin: No Rash or Ulcers Neurological: NL Muscle Strength and Tone, - - Alert to self and place. Nutrition: Taking PO's - Nutrition: Malnutrition Diagnosis/Plan Malnutrition Assessment by Registered Dietitian: Malnutrition Assessment Clinical Characteristics Acute,Moderate Malnutrition Assessment: - Mild temporal muscle wasting Criteria - < 75% estimated energy expenditure > 7 days - Underweight status, BMI 17.9 Malnutrition Assessment: Will send glucerna shakes w/ meals. 220 kcals, Interventions 10 grams protein per serving. Malnutrition Assessment: Goals 1. Intake will improve to promote wt repletion and maintain hydration Result Diagrams: 07/24/18 06:16 07/24/18 19:08 Additional Lab and Data: Laboratory Results - last 24 hr 07/23/18 07/23/18 07/24/18 18:44 21:08 06:16 WBC 5.7 RBC 3.89 L Hgb 11.7 L Hct 39 L MCV 100 H MCH 30 MCHC 30 L RDW 16 H Plt Count 143 L MPV 8.7 Neut % (Auto) 77.3 Lymph % (Auto) 13.4 [place] % (Auto) 6.7 Eos % (Auto) 2.0 Baso % (Auto) 0.6 Absolute Neuts (auto) 4.4 Absolute Lymphs (auto) 0.8 L Absolute Monos (auto) 0.4 Absolute Eos (auto) 0.1 Absolute Basos (auto) 0 Absolute Nucleated RBC 0 Nucleated RBC % 0.1 Sodium 147 H Potassium 4.4 Chloride 114 H Carbon Dioxide 25 Anion Gap 8 BUN 72 H Creatinine 1.87 H Est GFR ( Amer) 41.3 Est GFR (Non-Af Amer) 34.2 BUN/Creatinine Ratio 38.5 H Glucose 342 H POC Glucose (mg/dL) 305 H Calcium 8.7 Magnesium Cortisol 07/24/18 07/24/18 07/24/18 06:16 06:16 07:59 WBC RBC Hgb Hct MCV MCH MCHC RDW Plt Count MPV Neut % (Auto) Lymph % (Auto) [place] % (Auto) Eos % (Auto) Baso % (Auto) Absolute Neuts (auto) Absolute Lymphs (auto) Absolute Monos (auto) Absolute Eos (auto) Absolute Basos (auto) Absolute Nucleated RBC Nucleated RBC % Sodium 149 H Potassium 4.0 Chloride 114 H Carbon Dioxide 27 Anion Gap 8 BUN 65 H Creatinine 1.60 H Est GFR ( Amer) 49.5 Est GFR (Non-Af Amer) 40.9 BUN/Creatinine Ratio 40.6 H Glucose 326 H POC Glucose (mg/dL) 337 H Calcium 8.6 Magnesium 2.4 Cortisol 10.87 07/24/18 07/24/18 07/24/18 12:09 12:17 14:17 WBC RBC Hgb Hct MCV MCH MCHC RDW Plt Count MPV Neut % (Auto) Lymph % (Auto) [place] % (Auto) Eos % (Auto) Baso % (Auto) Absolute Neuts (auto) Absolute Lymphs (auto) Absolute Monos (auto) Absolute Eos (auto) Absolute Basos (auto) Absolute Nucleated RBC Nucleated RBC % Sodium 144 Potassium 3.9 Chloride 112 H Carbon Dioxide 26 Anion Gap 6 BUN 59 H Creatinine 1.52 H Est GFR ( Amer) 52.5 Est GFR (Non-Af Amer) 43.4 BUN/Creatinine Ratio 38.8 H Glucose 398 H 415 H POC Glucose (mg/dL) > 444 H* Calcium 8.4 L Magnesium Cortisol 07/24/18 17:12 WBC RBC Hgb Hct MCV MCH MCHC RDW Plt Count MPV Neut % (Auto) Lymph % (Auto) [place] % (Auto) Eos % (Auto) Baso % (Auto) Absolute Neuts (auto) Absolute Lymphs (auto) Absolute Monos (auto) Absolute Eos (auto) Absolute Basos (auto) Absolute Nucleated RBC Nucleated RBC % Sodium Potassium Chloride Carbon Dioxide Anion Gap BUN Creatinine Est GFR ( Amer) Est GFR (Non-Af Amer) BUN/Creatinine Ratio Glucose POC Glucose (mg/dL) 276 H Calcium Magnesium Cortisol Microbiology and Other Data: Microbiology Microbiology 07/22/18 09:20 Urine Urine Culture - Final Providencia Rettgeri Strep Dysgalactiae (Grp C) Normal Megan 07/22/18 09:31 Blood Venous Aerobic Blood Culture - Preliminary No Growth Day 2 07/22/18 09:31 Blood Venous Anaerobic Blood Culture - Preliminary No Growth Day 2 07/22/18 09:24 Blood Venous Aerobic Blood Culture - Preliminary No Growth Day 2 07/22/18 09:24 Blood Venous Anaerobic Blood Culture - Preliminary No Growth Day 2 07/22/18 14:25 Nasal Nasal Screen MRSA (PCR) - Final Mrsa Not Detected 07/22/18 09:15 Nasal Influenza Types A,B Antigen - Final Specimen received for Influenza A/B Molecular testing Assess/Plan/Problems-Billing Assessment: 87 yr old male with pmh of dementia, cad, htn, dm2, prostate CA; who presented to the ED with AMS, decrease intake, and new onset incontinence of stool and was found to have BG of 800 and LOLA - Patient Problems (1) 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 Comment: - BG increasing - Increase lantus 20 units daily per Endocrinology - Cont SS (2) Hypernatremia Comment: - D5W stopped per Endocrinolgy recommendation as Na is normalizing - If fluid is needed Endo recommends NS - Patient is drinking and water encouraged, therefore, will hold off on extra IVF tonight and reassessment status tomorrow with repeat BMP (3) Dementia Comment: - Supportive Care (4) CAD (coronary artery disease) Comment: - Cont Metoprolol (5) HTN (hypertension) Comment: - Normotensive - Cont to hold Lisinopril/HCTZ (6) History of prostate cancer Comment: - Blair changed on admission. (7) Hypothyroid Comment: - TSH 3.01 - Cont Levothyroxine (8) Urinary tract infection Comment: - Cont Rocephin - Culture reveals Providencia Rettgeri which is sensitive to Rocephin. In addition, Strep Dysgalactiae, given the LOLA and this bacteria an ultrasound of bilateral kidneys and bladder ordered. (9) DVT prophylaxis Comment: - Heparin SubQ Status and Disposition: Inpatient. Per case manager specialist patient was to be admitted to [facility] yesterday , but family brought him here instead to due symptoms, therefore, he can be discharged to [facility]? Attending: Bernabe Dougherty
[2018-07-24] MEDS ORDERED: Insulin GLARGINE(*) 1 UNITS UNIT SUBCUT SCH (18:11)
[2018-07-24 19:34] LABS: BUN/Creatinine Ratio 36.3 (8-20); Calcium 8.3 mg/dL (8.6-10.3); EGFR African American 50.6 (>60); EGFR Non-African American 41.8 (>60); Potassium 3.9 mmol/L (3.5-5.0)
[2018-07-24] MEDS: Insulin GLARGINE(*) 1 UNITS UNIT SUBCUT SCH (20:43)
[2018-07-25] MEDS ORDERED: NS 0.9% 250 ML* 250 ML IV ONE (04:06)
[2018-07-25] MEDS: Heparin VIAL(*) 5000 UNITS/ML VIAL (FIVE THOUSAND) SUBCUT SCH ×3 (05:58→20:13)
[2018-07-25] MEDS: Levothyroxine TAB* 25 MCG TAB PO SCH (05:59)
[2018-07-25 06:43] LABS: ABS Basophils 0 10^3/ul (0-0.2); ABS Eosinophils 0.1 10^3/ul (0-0.6); ABS Lymphocytes 0.9 10^3/ul (1.0-4.8); ABS Monocytes 0.3 10^3/ul (0-0.8); ABS Neutrophils 3.8 10^3/ul (1.5-7.7); ABS Nucleated RBC 0 10^3/ul; Eosinophil % 2.7 %; Hematocrit 33 % (42-52); Hemoglobin 10.8 g/dl (14.0-18.0); Lymphocyte % 17.9 %; Mean Corpuscular HGB Conc 33 g/dl (31-36); Mean Corpuscular Hemoglobin 30 pg (27-31); Mean Corpuscular Volume 91 fL (80-94); Mean Platelet Volume 8.3 fL (7.4-10.4); Nucleated Red Blood Cells % 0; Platelet Count 120 10^3/ul (150-450); Red Blood Count 3.59 10^6/ul (4.00-5.40); Red Cell Distribution Width 15 % (10.5-15); White Blood Count 5.2 10^3/ul (3.5-10.8)
[2018-07-25 07:05] LABS: BUN/Creatinine Ratio 33.8 (8-20); Calcium 8.5 mg/dL (8.6-10.3); EGFR African American 59.7 (>60); EGFR Non-African American 49.3 (>60); Magnesium 2.2 mg/dL (1.9-2.7); Potassium 3.8 mmol/L (3.5-5.0)
[2018-07-25] MEDS: Insulin LISPRO* 1 UNITS UNIT SUBCUT SCH ×3 (07:21→17:39)
[2018-07-25] MEDS: Metoprolol Succinate XL TAB* 25 MG PO SCH (07:22)
[2018-07-25] MEDS: cefTRIAXone(*) 1 GM in NS 0.9% 50 ML* 50 ML IVPB SCH (11:30)
--- NOTE | 2018-07-25 14:21 | PN ---
Subjective Date of Service: 07/25/18 Interval History: Mr. Mayfield is feeling well today. He offers no complaints and is in good spirits. He denies CP, SOB, N/V. He is agreeable to going to [facility] on Saturday. Family History: Unchanged from Admission Social History: Unchanged from Admission Past Medical History: Unchanged from Admission Objective Active Medications: Acetaminophen (Tylenol Tab*) 650 mg PO Q4H PRN FEVER/PAIN Dextrose (D50w Syringe 50 Ml*) 12.5 gm IV PUSH .FOR FS < 60 - SS PRN FS < 60 Glipizide (Glucotrol Xl*) 2.5 mg PO DAILY [facility] Heparin Sodium (Porcine) (Heparin Vial(*)) 5,000 units SUBCUT Q8HR [facility] Ceftriaxone Sodium 1 gm/ (Sodium Chloride) 50 mls @ 200 mls/hr IVPB 1030 [facility] Insulin Glargine (Lantus(*)) 20 units SUBCUT 2100 [facility] Insulin Human Lispro (Humalog*) 0 units SUBCUT AC [facility]; Protocol Levothyroxine Sodium (Synthroid Tab*) 25 mcg PO 0600 [facility] Metoprolol Succinate (Toprol Xl Tab*) 25 mg PO DAILY [facility] Vital Signs - 8 hr 07/25/18 07/25/18 07/25/18 07:20 07:36 07:37 Temperature 97.8 F Pulse Rate 71 Respiratory 16 18 Rate Blood Pressure 100/52 (mmHg) O2 Sat by Pulse 100 Oximetry 07/25/18 11:16 Temperature 97.9 F Pulse Rate 68 Respiratory 16 Rate Blood Pressure 101/38 (mmHg) O2 Sat by Pulse 98 Oximetry Oxygen Devices in Use Now: Nasal Cannula - 2L Appearance: Elderly male laying in bed in NAD Eyes: No Scleral Icterus Ears/Nose/Mouth/Throat: Mucous Membranes Moist Neck: NL Appearance and Movements; NL JVP, Trachea Midline Respiratory: Symmetrical Chest Expansion and Respiratory Effort, Clear to Auscultation Cardiovascular: NL Sounds; No Murmurs; No JVD, RRR Abdominal: NL Sounds; No Tenderness; No Distention Extremities: No Edema Skin: No Rash or Ulcers Neurological: - - Oriented to self and place Lines/Tubes/Other Access: Clean, Dry and Intact Peripheral IV Nutrition: Taking PO's - Nutrition: Malnutrition Diagnosis/Plan Malnutrition Assessment by Registered Dietitian: Malnutrition Assessment Clinical Characteristics Acute,Moderate Malnutrition Assessment: - Mild temporal muscle wasting Criteria - < 75% estimated energy expenditure > 7 days - Underweight status, BMI 17.9 Malnutrition Assessment: Will send glucerna shakes w/ meals. 220 kcals, Interventions 10 grams protein per serving. Malnutrition Assessment: Goals 1. Intake will improve to promote wt repletion and maintain hydration Result Diagrams: 07/25/18 06:31 07/25/18 06:28 Assess/Plan/Problems-Billing Assessment: Mr. Mayfield is an 87 yo male with PMH of dementia, cad, htn, dm2, prostate CA; who presented to the ED with AMS, decrease intake, and new onset incontinence of stool and was found to have BG of 800 and LOLA. - Patient Problems (1) Diabetic hyperosmolar non-ketotic state Code(s): E11.00 - TYPE 2 DIAB W HYPROSM W/O NONKET HYPRGLY-HYPROS COMA ([facility]) Comment: - BG 800 on admission, now improved in the 130-180s - Hgb A1c 16.6% - Appreciate Endocrinology consult - Continue glipizide, Lantus, Lispro SS (2) Urinary tract infection Comment: - Catheter related, present on admission - Culture reveals Providencia rettgeri group C Strep, both with colony counts 75 -100K - US shows nonobstructing calculi and simple cysts - Continue ceftriaxone (3) Sepsis Comment: - Secondary to UTI - Met sepsis criteria on admission with tachycardia, tachypnea; met qSOFA criteria with tachypnea and AMS - Plan as above (4) Septic encephalopathy Code(s): G93.41 - METABOLIC ENCEPHALOPATHY Comment: - Secondary to UTI - Present on admission with reported garbled speech, now resolved (5) Malnutrition Code(s): E46 - UNSPECIFIED PROTEIN-CALORIE MALNUTRITION Comment: - Acute, moderate; see assessment by Hobber - Continue Glucerna TID (6) HTN (hypertension) Code(s): I10 - ESSENTIAL (PRIMARY) HYPERTENSION Comment: - BPs have been soft, SBP 80-100s - Holding lisinopril, HCTZ (7) Hypernatremia Code(s): E87.0 - HYPEROSMOLALITY AND HYPERNATREMIA Comment: - Resolved with IVF - Encourage PO intake - Continue to trend BMP (8) CAD (coronary artery disease) Code(s): I25.10 - ATHSCL HEART DISEASE OF [place] CORONARY ARTERY W/O ANG PCTRS Comment: - Stable (9) History of prostate cancer Code(s): Z85.46 - PERSONAL HISTORY OF MALIGNANT NEOPLASM OF PROSTATE Comment: - Continue Blair changed on admission (10) Dementia Code(s): F03.90 - UNSPECIFIED DEMENTIA WITHOUT BEHAVIORAL DISTURBANCE Comment : - Supportive Care (11) Hypothyroidism Code(s): E03.9 - HYPOTHYROIDISM, UNSPECIFIED Comment: - Continue levothyroxine (12) DVT prophylaxis Comment: - Heparin SubQ (13) DNR (do not resuscitate) Comment: Status and Disposition: Inpatient. Anticipate d/c to [facility] on Saturday. Attending: Bernabe Dougherty
[2018-07-25] MEDS: glipiZIDE TAB.XL* 2.5 MG PO SCH (14:26)
[2018-07-25] MEDS: Insulin GLARGINE(*) 1 UNITS UNIT SUBCUT SCH (20:13)
[2018-07-26] MEDS: Acetaminophen TAB* 325 MG PO PRN ×2 (03:08→09:59)
[2018-07-26] MEDS: Levothyroxine TAB* 25 MCG TAB PO SCH (06:00)
[2018-07-26] MEDS: Heparin VIAL(*) 5000 UNITS/ML VIAL (FIVE THOUSAND) SUBCUT SCH ×3 (06:01→21:47)
[2018-07-26 06:40] LABS: BUN/Creatinine Ratio 26.8 (8-20); Calcium 8.4 mg/dL (8.6-10.3); EGFR African American 58.7 (>60); EGFR Non-African American 48.5 (>60); Potassium 3.9 mmol/L (3.5-5.0)
[2018-07-26] MEDS: Insulin LISPRO* 1 UNITS UNIT SUBCUT SCH ×3 (07:30→17:04)
[2018-07-26] MEDS ORDERED: NS 0.45% 1000 ML BAG* 1,000 ML IV SCH (09:00)
[2018-07-26] MEDS: cefTRIAXone(*) 1 GM in NS 0.9% 50 ML* 50 ML IVPB SCH (09:40)
[2018-07-26] MEDS: Metoprolol Succinate XL TAB* 25 MG PO SCH (09:40)
[2018-07-26] MEDS: glipiZIDE TAB.XL* 2.5 MG PO SCH (09:40)
--- NOTE | 2018-07-26 13:40 | PN ---
Subjective Date of Service: 07/26/18 Interval History: Mr. Mayfield is feeling well this morning and offers no complaints. He does not remember if he had breakfast this morning. He denies CP, SOB, N/V, abd pain. No complaints from nursing. Family History: Unchanged from Admission Social History: Unchanged from Admission Past Medical History: Unchanged from Admission Objective Active Medications: Acetaminophen (Tylenol Tab*) 650 mg PO Q4H PRN FEVER/PAIN Dextrose (D50w Syringe 50 Ml*) 12.5 gm IV PUSH .FOR FS < 60 - SS PRN FS < 60 Glipizide (Glucotrol Xl*) 2.5 mg PO DAILY [facility] Heparin Sodium (Porcine) (Heparin Vial(*)) 5,000 units SUBCUT Q8HR [facility] Ceftriaxone Sodium 1 gm/ (Sodium Chloride) 50 mls @ 200 mls/hr IVPB 1030 [facility] Sodium Chloride (Ns 0.45% 1000 Ml Bag*) 1,000 mls @ 50 mls/hr IV PER RATE [facility] Insulin Glargine (Lantus(*)) 20 units SUBCUT 2100 [facility] Insulin Human Lispro (Humalog*) 0 units SUBCUT AC [facility]; Protocol Levothyroxine Sodium (Synthroid Tab*) 25 mcg PO 0600 [facility] Metoprolol Succinate (Toprol Xl Tab*) 25 mg PO DAILY [facility] Vital Signs - 8 hr 07/26/18 07/26/18 07:31 07:43 Temperature 97.7 F Pulse Rate 72 Respiratory 18 18 Rate Blood Pressure 123/41 (mmHg) O2 Sat by Pulse 100 Oximetry Oxygen Devices in Use Now: None Appearance: Elderly male laying in bed in NAD Eyes: No Scleral Icterus Ears/Nose/Mouth/Throat: Mucous Membranes Moist Neck: NL Appearance and Movements; NL JVP, Trachea Midline Respiratory: Symmetrical Chest Expansion and Respiratory Effort, Clear to Auscultation Cardiovascular: NL Sounds; No Murmurs; No JVD, RRR Abdominal: NL Sounds; No Tenderness; No Distention Extremities: No Edema Neurological: - - Oriented to self and place Lines/Tubes/Other Access: Clean, Dry and Intact Peripheral IV Nutrition: Taking PO's - Nutrition: Malnutrition Diagnosis/Plan Malnutrition Assessment by Registered Dietitian: Malnutrition Assessment Clinical Characteristics Acute,Moderate Malnutrition Assessment: - Mild temporal muscle wasting Criteria - < 75% estimated energy expenditure > 7 days - Underweight status, BMI 17.9 Malnutrition Assessment: Will send glucerna shakes w/ meals. 220 kcals, Interventions 10 grams protein per serving. Malnutrition Assessment: Goals 1. Intake will improve to promote wt repletion and maintain hydration Result Diagrams: 07/25/18 06:31 07/26/18 06:03 Assess/Plan/Problems-Billing Assessment: Mr. Mayfield is an 87 yo male with PMH of dementia, cad, htn, dm2, prostate CA; who presented to the ED with AMS, decrease intake, and new onset incontinence of stool and was found to have BG of 800 and LOLA. - Patient Problems (1) Diabetic hyperosmolar non-ketotic state Code(s): E11.00 - TYPE 2 DIAB W HYPROSM W/O NONKET HYPRGLY-HYPROS COMA ([facility]) Comment: - BG 800 on admission, now improved in the 130-180s - Hgb A1c 16.6% - Appreciate Endocrinology consult - Continue glipizide, Lantus, Lispro SS (2) Urinary tract infection Comment: - Catheter related, present on admission - Culture reveals Providencia rettgeri group C Strep, both with colony counts 75 -100k - US shows nonobstructing calculi and simple cysts - Continue ceftriaxone (3) Hypernatremia Code(s): E87.0 - HYPEROSMOLALITY AND HYPERNATREMIA Comment: - Na up again this morning, so he is likely still volume deplete; no evidence of DI - Encourage PO intake and resume 1/2 NS - Continue to trend BMP (4) Sepsis Comment: - Secondary to UTI - Met sepsis criteria on admission with tachycardia, tachypnea; met qSOFA criteria with tachypnea and AMS - Plan as above (5) Septic encephalopathy Code(s): G93.41 - METABOLIC ENCEPHALOPATHY Comment: - Secondary to UTI - Present on admission with reported garbled speech, now resolved (6) Malnutrition Code(s): E46 - UNSPECIFIED PROTEIN-CALORIE MALNUTRITION Comment: - Acute, moderate; see assessment by Train Inspector - Continue Glucerna TID (7) HTN (hypertension) Code(s): I10 - ESSENTIAL (PRIMARY) HYPERTENSION Comment: - Normotensive, SBP 100-120s - Holding lisinopril, HCTZ (8) CAD (coronary artery disease) Code(s): I25.10 - ATHSCL HEART DISEASE OF [place] CORONARY ARTERY W/O ANG PCTRS Comment: - Stable (9) History of prostate cancer Code(s): Z85.46 - PERSONAL HISTORY OF MALIGNANT NEOPLASM OF PROSTATE Comment: - Continue Blair, changed on admission (10) Dementia Code(s): F03.90 - UNSPECIFIED DEMENTIA WITHOUT BEHAVIORAL DISTURBANCE Comment : - Supportive Care (11) Hypothyroidism Code(s): E03.9 - HYPOTHYROIDISM, UNSPECIFIED Comment: - Continue levothyroxine (12) DVT prophylaxis Comment: - Heparin SubQ (13) DNR (do not resuscitate) Comment: Status and Disposition: Inpatient. Anticipate d/c to [facility] on Saturday if sodium normalizes. Attending: Dat Carrillo
[2018-07-26] MEDS: NS 0.45% 1000 ML BAG* 1,000 ML IV SCH ×2 (14:19→22:16)
[2018-07-26] MEDS: Insulin GLARGINE(*) 1 UNITS UNIT SUBCUT SCH (21:46)
[2018-07-27] MEDS: Levothyroxine TAB* 25 MCG TAB PO SCH (05:47)
[2018-07-27] MEDS: Heparin VIAL(*) 5000 UNITS/ML VIAL (FIVE THOUSAND) SUBCUT SCH ×3 (05:47→21:57)
[2018-07-27 07:04] LABS: BUN/Creatinine Ratio 22.8 (8-20); Calcium 8.1 mg/dL (8.6-10.3); EGFR African American 73.2 (>60); EGFR Non-African American 60.5 (>60); Potassium 3.9 mmol/L (3.5-5.0)
[2018-07-27] MEDS: Insulin LISPRO* 1 UNITS UNIT SUBCUT SCH ×3 (08:16→17:15)
[2018-07-27] MEDS: glipiZIDE TAB.XL* 2.5 MG PO SCH (08:34)
[2018-07-27] MEDS: Metoprolol Succinate XL TAB* 25 MG PO SCH (08:34)
[2018-07-27] MEDS: Acetaminophen TAB* 325 MG PO PRN ×3 (08:41→21:16)
[2018-07-27] MEDS: cefTRIAXone(*) 1 GM in NS 0.9% 50 ML* 50 ML IVPB SCH (10:38)
--- NOTE | 2018-07-27 14:42 | PN ---
Subjective Date of Service: 07/27/18 Interval History: Mr. Mayfield is feeling well today. He offers no complaints, but admits to poor appetite. He also does not like the tap water here and therefore, has not been drinking a sufficient amount of fluid. He denies CP, SOB, N/V. Family History: Unchanged from Admission Social History: Unchanged from Admission Past Medical History: Unchanged from Admission Objective Active Medications: Acetaminophen (Tylenol Tab*) 650 mg PO Q4H PRN FEVER/PAIN Dextrose (D50w Syringe 50 Ml*) 12.5 gm IV PUSH .FOR FS < 60 - SS PRN FS < 60 Glipizide (Glucotrol Xl*) 2.5 mg PO DAILY GUR[facility] Heparin Sodium (Porcine) (Heparin Vial(*)) 5,000 units SUBCUT Q8HR [facility] Ceftriaxone Sodium 1 gm/ (Sodium Chloride) 50 mls @ 200 mls/hr IVPB 1030 GURPREET Insulin Glargine (Lantus(*)) 20 units SUBCUT 2100 GURPREET Insulin Human Lispro (Humalog*) 0 units SUBCUT AC GURPRE[facility]; Protocol Levothyroxine Sodium (Synthroid Tab*) 25 mcg PO 0600 GURPREET Lisinopril (Prinivil Tab*) 2.5 mg PO DAILY [facility] Metoprolol Succinate (Toprol Xl Tab*) 25 mg PO DAILY [facility] Vital Signs - 8 hr 07/27/18 07/27/18 07/27/18 07:43 08:00 11:18 Temperature 98.0 F 97.7 F Pulse Rate 82 72 Respiratory 16 18 16 Rate Blood Pressure 114/46 110/50 (mmHg) O2 Sat by Pulse 97 99 Oximetry Oxygen Devices in Use Now: None Appearance: Elderly male laying in bed in NAD Eyes: No Scleral Icterus Ears/Nose/Mouth/Throat: Mucous Membranes Moist Neck: NL Appearance and Movements; NL JVP, Trachea Midline Respiratory: Symmetrical Chest Expansion and Respiratory Effort, Clear to Auscultation Cardiovascular: NL Sounds; No Murmurs; No JVD, RRR Abdominal: NL Sounds; No Tenderness; No Distention Extremities: No Edema Neurological: - - Oriented to self and place Lines/Tubes/Other Access: Clean, Dry and Intact Blair, Clean, Dry and Intact Peripheral IV Nutrition: Taking PO's - Nutrition: Malnutrition Diagnosis/Plan Malnutrition Assessment by Registered Dietitian: Malnutrition Assessment Clinical Characteristics Acute,Moderate Malnutrition Assessment: - Mild temporal muscle wasting Criteria - < 75% estimated energy expenditure > 7 days - Underweight status, BMI 17.9 Malnutrition Assessment: Will send mojgan ramsey w/ meals. 220 kcals, Interventions 10 grams protein per serving. Malnutrition Assessment: Goals 1. Intake will improve to promote wt repletion and maintain hydration Result Diagrams: 07/25/18 06:31 07/27/18 05:42 Assess/Plan/Problems-Billing Assessment: Mr. Mayfield is an 87 yo male with PMH of dementia, cad, htn, dm2, prostate CA; who presented to the ED with AMS, decrease intake, and new onset incontinence of stool and was found to have BG of 800 and LOLA. - Patient Problems (1) Diabetic hyperosmolar non-ketotic state Code(s): E11.00 - TYPE 2 DIAB W HYPROSM W/O NONKET HYPRGLY-HYPROS COMA ([facility]) Comment: - BG 800 on admission; now improved with fasting glucose in the 60s, but otherwise running around 200 the rest of the day - Hgb A1c 16.6% - Appreciate Endocrinology consult - Increased SS today, though he will likely need a standing order of Lispro with meals - Continue glipizide, Lantus (decreased) (2) Urinary tract infection Comment: - Catheter related, present on admission - Culture reveals Providencia rettgeri group C Strep, both with colony counts 75 -100k - US shows nonobstructing calculi and simple cysts - Continue ceftriaxone (day 11/24) (3) Hypernatremia Code(s): E87.0 - HYPEROSMOLALITY AND HYPERNATREMIA Comment: - Na up again this morning, so he is likely still volume deplete; no evidence of DI - Encourage PO intake; ordered bottled water with each meal as he admits to not drinking the tap water here - Continue to trend BMP (4) Sepsis Comment: - Secondary to UTI - Met sepsis criteria on admission with tachycardia, tachypnea; met qSOFA criteria with tachypnea and AMS - Plan as above (5) Septic encephalopathy Code(s): G93.41 - METABOLIC ENCEPHALOPATHY Comment: - Secondary to UTI - Present on admission with reported garbled speech, now resolved (6) Malnutrition Code(s): E46 - UNSPECIFIED PROTEIN-CALORIE MALNUTRITION Comment: - Acute, moderate; see assessment by Commercial Leasing Agent - Continue Glucerna TID (7) HTN (hypertension) Code(s): I10 - ESSENTIAL (PRIMARY) HYPERTENSION Comment: - Normotensive, SBP 110s - Hold HCTZ - Continue metoprolol; will resume lisinopril at a lower dose for renal protection (8) CAD (coronary artery disease) Code(s): I25.10 - ATHSCL HEART DISEASE OF [place] CORONARY ARTERY W/O ANG PCTRS Comment: - Stable (9) History of prostate cancer Code(s): Z85.46 - PERSONAL HISTORY OF MALIGNANT NEOPLASM OF PROSTATE Comment: - Chronic Blair, changed on admission (10) Dementia Code(s): F03.90 - UNSPECIFIED DEMENTIA WITHOUT BEHAVIORAL DISTURBANCE Comment : - Supportive Care (11) Hypothyroidism Code(s): E03.9 - HYPOTHYROIDISM, UNSPECIFIED Comment: - Continue levothyroxine (12) DVT prophylaxis Comment: - Heparin SubQ (13) DNR (do not resuscitate) Comment: Status and Disposition: Inpatient. Anticipate d/c to [facility] on Saturday if sodium is stable. Attending: Dat Carrillo
[2018-07-27] MEDS ORDERED: Insulin GLARGINE(*) 1 UNITS UNIT SUBCUT SCH (21:00)
[2018-07-28] MEDS: Levothyroxine TAB* 25 MCG TAB PO SCH (06:40)
[2018-07-28] MEDS: Heparin VIAL(*) 5000 UNITS/ML VIAL (FIVE THOUSAND) SUBCUT SCH ×2 (06:40→13:16)
[2018-07-28 07:05] LABS: BUN/Creatinine Ratio 20.7 (8-20); Calcium 8.1 mg/dL (8.6-10.3); EGFR African American 71.7 (>60); EGFR Non-African American 59.3 (>60); Potassium 3.9 mmol/L (3.5-5.0)
[2018-07-28] MEDS: Insulin LISPRO* 1 UNITS UNIT SUBCUT SCH ×2 (07:35→13:15)
[2018-07-28] MEDS ORDERED: Lisinopril TAB* 5 MG PO SCH (09:00)
[2018-07-28] MEDS: Metoprolol Succinate XL TAB* 25 MG PO SCH (10:41)
[2018-07-28] MEDS: glipiZIDE TAB.XL* 2.5 MG PO SCH (10:42)
[2018-07-28] MEDS: cefTRIAXone(*) 1 GM in NS 0.9% 50 ML* 50 ML IVPB SCH (10:42)
--- NOTE | 2018-07-28 13:17 | DS ---
CC: Dr. Norma Rayo, [facility]; Dr. Nenita Perez, [facility]; Dr. Gomez Corrales * DATE OF ADMISSION: 07/22/2018. DATE OF DISCHARGE: 07/28/2018. PRIMARY CARE PHYSICIAN: Attending at [facility]. ATTENDING PHYSICIAN: Dr. Elena Astorga * (dictated by Lin Quinones NP). HOSPITAL COURSE: This is a pleasant, 87-year-old male patient who presented to the emergency department on 07/22/2018. The patient was actually supposed to be admitted to [facility] for long-term care; however, he became altered and was brought in by his family. The patient does have a history of dementia; however, the patient's family states that he has had decreased appetite, progressive worsening symptom , and would appear to be some acute on chronic dementia. While in the ER, the patient had some lab work drawn. His blood sugar was in excess of 800, also with an elevated BUN and creatinine. The patient was admitted for his hyperglycemia. He was given IV fluid hydration. He was very dehydrated and again had acute kidney injury. He responded well to titration of insulin and increase in IV fluids and also increase in p.o. fluid intake. The patient's A1c was noted to be 16.6. At that point, Dr. Gomez Corrales was consulted to help manage the patient's hyperglycemia. He initially was one insulin drip when he was admitted and then received 2 liters of normal saline. After the patient was weaned off the insulin drip when his blood sugar stabilized, he received long-acting insulin and short- acting which were titrated by Dr. Corrales. He was also started on Glipizide 2.5 mg daily. Also of significant note, the patient did have a urinary tract infection with Providencia rettgeri group C strep. He has been on Ceftriaxone for his urinary tract infection. The patient also met sepsis criteria, again had his fluid resuscitation and responded well. Also, during this time he had an elevated sodium secondary to his volume depletion. Again, he responded very well to fluids and his levels began to normalize. The patient's long-acting insulin was titrated. We back off a little bit over the last 24 hours because his sugars were running a little on the low side. He seems to be responding well to his current diabetic regimen. DISCHARGE DIAGNOSES: 1. Diabetic hyperosmolar nonketotic state, now under control. 2. Urinary tract infection with Providencia rettgeri responding to Ceftriaxone. 3. Hypernatremia, now resolved. 4. Sepsis, now resolved. 5. Septic encephalopathy, now resolved. 6. Acute moderate malnutrition, resolving. 7. History of hypertension, stable. 8. History of coronary artery disease, stable. 9. History of prostate cancer with chronic Blair, stable. 10. History of dementia, currently at baseline. 11. History of hypothyroidism, on Synthroid, currently stable. DISCHARGE MEDICATIONS: 1. Tylenol 650 mg p.o. q.4 hours as needed. 2. Glipizide 2.5 mg p.o. daily. 3. Lantus 18 units subcu at 9:00 p.m. 4. Lispro sliding scale, blood sugar 131 to 150 one unit, 151 to 200 two units , 201 to 250 four units, 251 to 300 six units, 301 to 350 eight units, 351 to 400 ten units, greater than 400 please confirm glucose and call attending. 5. Synthroid 25 mcg p.o. daily. 6. Lisinopril 2.5 mg p.o. daily. 7. Metoprolol Succinate XL 25 mg p.o. daily. 8. Antibiotic Cefuroxime 500 mg one tablet p.o. b.i.d. times 4 more days. REVIEW OF SYSTEMS: On the day of discharge, the patient denies any fever, fatigue or chills. No shortness of breath. No abdominal pains. No nausea, no vomiting. No further constitutional complaints. PHYSICAL EXAMINATION: General: He is well-appearing, confused at baseline, in no acute distress. Vital Signs: Blood pressure 128/64, heart rate 79, O2 saturation 99 percent on room air, respiratory rate 16, temperature 98.2. HEENT : The patient is atraumatic, normocephalic. PERRLA with nonicteric sclerae. Oral mucosa is moist. Tongue is midline. Neck is supple, nontender. No JVD noted. Cardiovascular: S1, S2 present. Rate and rhythm are regular. No murmurs, gallops, or rubs noted. Lungs: Clear bilaterally to auscultation with no wheezing, rhonchi or rales. Abdomen: Soft, nontender, nondistended. Positive bowel sounds all four quadrants. : He has a Blair catheter draining clear yellow urine. Musculoskeletal: There is no clubbing, no cyanosis, and no edema. He has +2 distal pulses palpable. Gross motor and sensation are intact. Neurologic: He is confused at baseline; however, he is responding appropriately and able to make his needs known. Psychiatric: He is cooperative and appropriate. LABORATORY DATA: WBC 5.2, RBC 3.59, hemoglobin 10.8, hematocrit 33, platelets 120; sodium 140, potassium 3.9, chloride 111, CO2 27, BUN 24, creatinine 1.16, GFR 59.3, glucose 72, calcium 8.1, last lactic acid 1.5, troponin negative at 0.03. IMAGING: The patient had a CT of the brain on 07/22/2018 which showed no acute intracranial pathology, some chronic small vessel ischemic changes; chest x-ray , also dated 07/22/2018, showed stigmata of COPD and emphysema with no acute cardiopulmonary process noted; ultrasound of the abdomen and bladder dated 07/24 shows left nonobstructing renal calculi and a simple right renal cyst. DISPOSITION: The patient will be discharged to [facility] for long-term care nursing. DIET: He should have a consistent carb ADA diet as tolerated. ACTIVITY: Out of bed as tolerated. FOLLOW-UP: The patient should follow-up with Dr. Rayo or Dr. Nenita Perez at [facility]. Please make this discharge summary the admission history and physical for the patient's admission to [facility]. TIME SPENT: Approximately 65 minutes interfacing with the patient, evaluating the chart, and determining discharge plan of care. LIN QUINONES NP [id number]/CPS #: [id number] SERVANDO
[2018-07-28 13:35] VITALS: BP 114/56
== END 2018-07-28 14:55 | DRG 698 ==
LOC: ED 08:41 → ICU 12:08 → MED 22:36
PROVIDERS: ADMIT Internal Medicine; ATTEND Internal Medicine
DX: T83.511A Infection and inflammatory reaction due to indwelling urethral catheter, initial encounter (principal); E11.00 Type 2 diabetes mellitus with hyperosmolarity without nonketotic hyperglycemic-hyperosmolar coma (NKHHC); G93.41 Metabolic encephalopathy; N17.9 Acute kidney failure, unspecified; E87.0 Hyperosmolality and hypernatremia; E44.0 Moderate protein-calorie malnutrition; E11.65 Type 2 diabetes mellitus with hyperglycemia; E86.0 Dehydration; F03.90 Unspecified dementia, unspecified severity, without behavioral disturbance, psychotic disturbance, mood disturbance, and anxiety; Z66 Do not resuscitate; N39.0 Urinary tract infection, site not specified; B95.4 Other streptococcus as the cause of diseases classified elsewhere; B96.89 Other specified bacterial agents as the cause of diseases classified elsewhere; I11.9 Hypertensive heart disease without heart failure; I25.10 Atherosclerotic heart disease of native coronary artery without angina pectoris; E78.5 Hyperlipidemia, unspecified; E03.9 Hypothyroidism, unspecified; Z85.46 Personal history of malignant neoplasm of prostate; Z95.1 Presence of aortocoronary bypass graft; Z79.84 Long term (current) use of oral hypoglycemic drugs; Z79.899 Other long term (current) drug therapy
CPT/HCPCS: 36415; 70450; 71045; 76770; 80048; 80053; 80307; 81003; 81015; 82140; 82533; 82803; 82947; 83036; 83605; 83735; 83930; 83935; 84100; 84300; 84443; 84484; 85025; 85610; 87040; 87077; 87086; 87186; 87641; 93005; 99284; A9270-GY; G8978-GP-CM; G8979-GP-CI; J0696; J1644; J1815